=== PATIENT | male | born 1950 | race Caucasian/White ===

== ENCOUNTER 2017-01-12 13:17 | Day surgery (SDC) | payer OTHER, BC ==
[~2017-01-12] VITALS: Ht 182.9 cm; Wt 116.5 kg
[~2017-01-12 13:17] MED LIST: APRESOLINE100 MG PO; CHILD ASPIRIN81 M1 PO; CITRACAL D + H1 EACH PO; CRESTOR20 MG PO; LABETALOL HCL200 MG PO; NABI650T PO; NORVASC2.5 MG PO; ZYLOPRIM100 MG PO
[2017-01-12] MEDS ORDERED: ISONIAZID,INH300 MG PO (14:06)
== END 2017-01-12 16:36 | disposition home or self-care (01) ==
LOC: SDC 13:17
PROC: BV49ZZZ Ultrasonography of Prostate and Seminal Vesicles (ICD-10-PCS; principal; 2017-01-12)
DX: C61 Malignant neoplasm of prostate (principal); Z20.1 Contact with and (suspected) exposure to tuberculosis; I12.0 Hypertensive chronic kidney disease with stage 5 chronic kidney disease or end stage renal disease; E11.22 Type 2 diabetes mellitus with diabetic chronic kidney disease; N18.5 Chronic kidney disease, stage 5; E78.5 Hyperlipidemia, unspecified; G47.30 Sleep apnea, unspecified; M10.9 Gout, unspecified; E83.39 Other disorders of phosphorus metabolism; Z79.82 Long term (current) use of aspirin
CPT/HCPCS: 76873

== ENCOUNTER 2017-02-10 06:18 | Day surgery (SDC) | payer OTHER, BC ==
[2017-01-12 13:53] VITALS: BP 150/71
[~2017-02-10] VITALS: Ht 182.9 cm; Wt 116.4 kg
[~2017-02-10 06:18] MED LIST changes: +ISONIAZID,INH300 MG PO
[2017-02-10] MEDS ORDERED: FEROSUL325 MG PO (06:55)
[2017-02-10 07:08] VITALS: BP 147/66
[2017-02-10 11:45] VITALS: BP 160/80
[2017-02-10 13:04] VITALS: BP 164/81
[2017-02-10 15:19] VITALS: BP 152/73
[2017-02-10 20:10] VITALS: BP 138/68
== END 2017-02-10 20:20 | disposition home or self-care (01) ==
LOC: SDC 06:18
PROC: 0VH031Z Insertion of Radioactive Element into Prostate, Percutaneous Approach (ICD-10-PCS; principal; 2017-02-10)
PROC: BW4GZZZ Ultrasonography of Pelvic Region (ICD-10-PCS; 2017-02-10)
PROC: 0TJB8ZZ Inspection of Bladder, Via Natural or Artificial Opening Endoscopic (ICD-10-PCS; 2017-02-10)
DX: C61 Malignant neoplasm of prostate (principal); I12.0 Hypertensive chronic kidney disease with stage 5 chronic kidney disease or end stage renal disease; E11.22 Type 2 diabetes mellitus with diabetic chronic kidney disease; N18.6 End stage renal disease; Z79.82 Long term (current) use of aspirin
CPT/HCPCS: 76965; 77332; 77778; 85027; C2638; J1100; J2250; J2405; J3010

== ENCOUNTER 2017-03-02 13:40 | Inpatient (IN) | payer OTHER, BC ==
[~2017-03-02] VITALS: Ht 182.9 cm; Wt 112.5 kg
[~2017-03-02 13:40] MED LIST changes: +CALCIUM + D3 E1 EACH PO; -CHILD ASPIRIN81 M1 PO; -CITRACAL D + H1 EACH PO; +FEROSUL325 MG PO; +LO-DOSE ASPIRIN81 M2 PO
[2017-03-02 14:48] LABS: HEMATOCRIT 28.6 % (38.0-50.0); MCH 30.4 PG (29.0-34.0); MCHC 33.2 G/DL (30.0-36.0); MCV 91.4 FL (86-99); PLATELET COUNT 109 K/uL (156-360); RBC DIS.WIDTH-CV 16.9 % (11.8-14.6); RBC DIS.WIDTH-SD 56.1 % (39-53); RED BLOOD COUNT 3.13 M/uL (4.00-5.50); WHITE BLOOD COUNT 8.6 K/uL (4.1-10.2)
[2017-03-02 15:01] LABS: CHLORIDE 112 mEq/L (99-109); POTASSIUM 3.4 mEq/L (3.7-5.4); SODIUM 138 mEq/L (136-147)
[2017-03-02 15:03] LABS: GLUCOSE 97 mg/dL (70-99)
[2017-03-02 15:04] LABS: ANION GAP 14 MEQ/L (2-14)
[2017-03-02 15:05] LABS: TOTAL BILIRUBIN 0.4 mg/dL (0.0-1.0)
[2017-03-02 15:06] LABS: ALKALINE PHOSPHATASE 46 IU/L (3-129)
[2017-03-02 15:07] LABS: GFR ESTIMATE (CALCULATED) 8 mL/min/
[2017-03-02 15:35] LABS: UREA NITROGEN (BUN) 140 mg/dL (9-23)
[2017-03-02] MEDS ORDERED: EPOGEN,PRO20000 UNIT SC (15:41)
[2017-03-02 21:19] VITALS: BP 123/82
[2017-03-03 00:09] VITALS: BP 119/65
[2017-03-03 04:33] VITALS: BP 114/72
[2017-03-03 06:38] LABS: ANION GAP 13 MEQ/L (2-14); CHLORIDE 107 MEQ/L (99-109); GLUCOSE 90 mg/dL (70-99); POTASSIUM 3.5 MEQ/L (3.7-5.4); SAMPLE HEMOLYSIS CHECK 0; SAMPLE ICTERIC CHECK 0; SAMPLE LIPEMIA CHECK 0; SODIUM 140 MEQ/L (136-147)
[2017-03-03 06:51] LABS: GFR ESTIMATE (CALCULATED) 11 mL/min/; UREA NITROGEN (BUN) 106 mg/dL (9-23)
[2017-03-03 08:39] VITALS: BP 130/70
[2017-03-03 08:58] LABS: IRON 43 MCG/DL (35-150)
[2017-03-03 12:15] LABS: HBSG INDEX 0.88
[2017-03-03 12:16] LABS: AHBS INDEX 2.54; HEPATITIS B SURFACE ANTIBODY Nonreactive
[2017-03-03 12:25] VITALS: BP 107/56
[2017-03-03 14:26] LABS: EOSINOPHIL (%) 5.8 % (0-5); EOSINOPHIL COUNT 0.3 K/uL (0-0.3); HEMATOCRIT 26.3 % (38.0-50.0); IMMATURE GRANULOCYTE (%) 0.4 % (0.0-0.7); INSTRUMENT ABS NEUTROPHIL CT 3.5 K/uL; LYMPHOCYTE COUNT 0.5 K/uL (1.0-2.8); MCHC 33.8 G/DL (30.0-36.0); MCV 91.6 FL (86-99); MEAN PLAT.VOLUME 13.2 uM^3 (9.0-12.4); MONOCYTE (%) 2.9 % (3-12); MONOCYTE COUNT 0.1 K/uL (0-0.8); NEUTROPHIL (%) 78.8 % (45-76); NEUTROPHIL COUNT 3.5 K/uL (1.8-6.4); PLATELET COUNT 86 K/uL (156-360); RBC DIS.WIDTH-CV 16.9 % (11.8-14.6); RBC DIS.WIDTH-SD 56.6 % (39-53); RED BLOOD COUNT 2.87 M/uL (4.00-5.50); WHITE BLOOD COUNT 4.5 K/uL (4.1-10.2)
[2017-03-03 17:52] LABS: POINT-OF-CARE METER ID UU14174225
[2017-03-03 20:01] VITALS: BP 110/51
[2017-03-03 23:30] VITALS: BP 125/62
[2017-03-04 03:14] LABS: ADD MIUA? YES; BILIRUBIN NEGATIVE; BLOOD SMALL; COLOR YELLOW ((YELLOW)); GLUCOSE (STRIP) NEGATIVE; KETONES NEGATIVE; LEUKOCYTES NEGATIVE; NITRITE NEGATIVE; PROTEIN (STRIP) 100; SPECIFIC GRAVITY 1.011 (1.000-1.030); UROBILINOGEN 0.2 MG/DL (0.2-1.0)
[2017-03-04 03:22] LABS: BACTERIA RARE /HPF; EPITHELIAL CELLS NONE SEEN /HPF; MUCUS NONE SEEN /LPF; RED BLOOD CELLS 0-5 /HPF (0-5); UCUL ADDED? NO; WHITE BLOOD CELLS 0-5 /HPF (0-5)
[2017-03-04 04:00] VITALS: BP 115/56
[2017-03-04 06:44] LABS: POINT-OF-CARE METER ID UU13113717
[2017-03-04 07:54] LABS: EOSINOPHIL (%) 3.7 % (0-5); EOSINOPHIL COUNT 0.2 K/uL (0-0.3); HEMATOCRIT 26.4 % (38.0-50.0); IMMATURE GRANULOCYTE (%) 0.3 % (0.0-0.7); INSTRUMENT ABS NEUTROPHIL CT 4.8 K/uL; LYMPHOCYTE COUNT 1.1 K/uL (1.0-2.8); MCH 29.5 PG (29.0-34.0); MCHC 31.8 G/DL (30.0-36.0); MCV 92.6 FL (86-99); MEAN PLAT.VOLUME 13.4 uM^3 (9.0-12.4); MONOCYTE COUNT 0.4 K/uL (0-0.8); NEUTROPHIL (%) 73.8 % (45-76); NEUTROPHIL COUNT 4.8 K/uL (1.8-6.4); PLATELET COUNT 83 K/uL (156-360); RBC DIS.WIDTH-CV 16.6 % (11.8-14.6); RBC DIS.WIDTH-SD 55.8 % (39-53); RED BLOOD COUNT 2.85 M/uL (4.00-5.50); WHITE BLOOD COUNT 6.5 K/uL (4.1-10.2)
[2017-03-04 07:55] VITALS: BP 126/76
[2017-03-04 08:54] LABS: INTACT PARATHYROID HORMONE 714 pg/mL (10-69)
[2017-03-04 10:49] LABS: ANION GAP 11 MEQ/L (2-14); CHLORIDE 108 MEQ/L (99-109); GFR ESTIMATE (CALCULATED) 14 mL/min/; GLUCOSE 86 mg/dL (70-99); POTASSIUM 3.5 MEQ/L (3.7-5.4); SAMPLE HEMOLYSIS CHECK 0; SAMPLE ICTERIC CHECK 0; SAMPLE LIPEMIA CHECK 0; SODIUM 141 MEQ/L (136-147); UREA NITROGEN (BUN) 64 mg/dL (9-23)
[2017-03-04] MEDS ORDERED: ROCALTROL0.25 MCG PO (11:52)
[2017-03-04] MEDS ORDERED: ELIPHOS667 MG PO (11:52)
[2017-03-04 12:05] VITALS: BP 127/66
[2017-03-04 16:44] VITALS: BP 128/63
[2017-03-04 19:41] VITALS: BP 110/59
[2017-03-04 23:55] VITALS: BP 110/53
[2017-03-05 04:00] VITALS: BP 108/53
[2017-03-05 06:05] LABS: EOSINOPHIL (%) 3.9 % (0-5); EOSINOPHIL COUNT 0.3 K/uL (0-0.3); IMMATURE GRANULOCYTE (%) 0.4 % (0.0-0.7); INSTRUMENT ABS NEUTROPHIL CT 5.2 K/uL; LYMPHOCYTE COUNT 1.1 K/uL (1.0-2.8); MCHC 32.7 G/DL (30.0-36.0); MCV 94.9 FL (86-99); MEAN PLAT.VOLUME 13.2 uM^3 (9.0-12.4); MONOCYTE (%) 7.4 % (3-12); MONOCYTE COUNT 0.5 K/uL (0-0.8); NEUTROPHIL (%) 72.5 % (45-76); NEUTROPHIL COUNT 5.2 K/uL (1.8-6.4); PLATELET COUNT 64 K/uL (156-360); RBC DIS.WIDTH-CV 16.6 % (11.8-14.6); RBC DIS.WIDTH-SD 57.7 % (39-53); RED BLOOD COUNT 2.74 M/uL (4.00-5.50); WHITE BLOOD COUNT 7.2 K/uL (4.1-10.2)
[2017-03-05 06:28] LABS: ANION GAP 8 MEQ/L (2-14); CHLORIDE 103 MEQ/L (99-109); GFR ESTIMATE (CALCULATED) 16 mL/min/; GLUCOSE 103 mg/dL (70-99); POTASSIUM 3.6 MEQ/L (3.7-5.4); SAMPLE HEMOLYSIS CHECK 0; SAMPLE ICTERIC CHECK 0; SAMPLE LIPEMIA CHECK 0; SODIUM 138 MEQ/L (136-147); UREA NITROGEN (BUN) 42 mg/dL (9-23)
[2017-03-05 08:32] LABS: POINT-OF-CARE METER ID UU14174225
[2017-03-05 08:43] VITALS: BP 110/63
[2017-03-05 11:15] LABS: POINT-OF-CARE METER ID UU14174225
[2017-03-05 11:23] VITALS: BP 107/61
[2017-03-05] MEDS ORDERED: ELIQUIS5 MG PO (11:37)
== END 2017-03-05 12:25 | disposition home or self-care (01) | DRG 673 ==
LOC: EME 13:40 → 5SOUTH 15:37 → EDOF 15:37 → ENRESERV 15:58 → 5SOUTH 20:43
PROVIDERS: Emergency Medicine; Hospitalist; Internal Medicine Nephrology
PROC: 5A1D60Z (ICD-10-PCS; principal; 2017-03-02)
PROC: 02HV33Z Insertion of Infusion Device into Superior Vena Cava, Percutaneous Approach (ICD-10-PCS; 2017-03-04)
PROC: 0JH63XZ Insertion of Tunneled Vascular Access Device into Chest Subcutaneous Tissue and Fascia, Percutaneous Approach (ICD-10-PCS; 2017-03-04)
DX: I12.0 Hypertensive chronic kidney disease with stage 5 chronic kidney disease or end stage renal disease (principal); N18.6 End stage renal disease; I48.0 Paroxysmal atrial fibrillation; G47.33 Obstructive sleep apnea (adult) (pediatric); Z99.2 Dependence on renal dialysis; D63.1 Anemia in chronic kidney disease; M10.9 Gout, unspecified; Z85.46 Personal history of malignant neoplasm of prostate; I27.2 Other secondary pulmonary hypertension; D50.9 Iron deficiency anemia, unspecified; N25.81 Secondary hyperparathyroidism of renal origin; E11.22 Type 2 diabetes mellitus with diabetic chronic kidney disease; E66.3 Overweight; Z68.33 Body mass index [BMI] 33.0-33.9, adult; E29.1 Testicular hypofunction
CPT/HCPCS: 71010; 80053; 80069; 81003; 82306; 82948; 83540; 83970; 84466; 85025; 85027; 86706; 87340; 93005; 93306; 99281; 99285; C1751; C1752; C1788; C2628; J0690; J0881; J1644; J1815; J7040

== ENCOUNTER 2017-03-16 09:25 | Day surgery (SDC) | payer OTHER, BC ==
[~2017-03-16] VITALS: Ht 182.9 cm; Wt 113.4 kg
[~2017-03-16 09:25] MED LIST changes: +ELIPHOS667 MG PO; +ELIQUIS5 MG PO; +EPOGEN,PRO20000 UNIT SC; +ROCALTROL0.25 MCG PO
[2017-03-16 10:08] LABS: POINT-OF-CARE METER ID UU14174212
[2017-03-16 10:26] VITALS: BP 122/63
[2017-03-16] MEDS ORDERED: NORCO 5/3251 TABLET PO (16:33)
[2017-03-16 17:15] VITALS: BP 120/56
[2017-03-16 17:55] VITALS: BP 122/58
== END 2017-03-16 18:10 | disposition home or self-care (01) ==
LOC: SDC
PROVIDERS: Surgery
DX: I12.0 Hypertensive chronic kidney disease with stage 5 chronic kidney disease or end stage renal disease (principal); E11.22 Type 2 diabetes mellitus with diabetic chronic kidney disease; N18.5 Chronic kidney disease, stage 5; D63.1 Anemia in chronic kidney disease; G47.30 Sleep apnea, unspecified; I48.0 Paroxysmal atrial fibrillation; E78.5 Hyperlipidemia, unspecified; E21.3 Hyperparathyroidism, unspecified; C61 Malignant neoplasm of prostate; E87.2 Acidosis; Z79.82 Long term (current) use of aspirin; Z84.1 Family history of disorders of kidney and ureter; Z83.3 Family history of diabetes mellitus; Z82.49 Family history of ischemic heart disease and other diseases of the circulatory system; Z80.6 Family history of leukemia
CPT/HCPCS: 82948; J0131; J0690; J1644; J2250; J2405; J3010

== ENCOUNTER 2017-04-29 14:13 | Day surgery (SDC) | payer OTHER, BC ==
[~2017-04-29] VITALS: Ht 182.9 cm; Wt 113.4 kg
[~2017-04-29 14:13] MED LIST changes: +LABETALOL HCL100 MG PO; -LABETALOL HCL200 MG PO; +NORCO 5/3251 TABLET PO; +PHOSPHATE BINDER PO; +RENAL VITAMIN0.8 MG PO
[2017-04-29] MEDS ORDERED: FERRIC CITRATE210 MG PO ×2 (14:33→14:36)
[2017-04-29 14:53] LABS: BASOPHIL COUNT 0.1 K/uL (0-0.1); EOSINOPHIL (%) 5.1 % (0-5); EOSINOPHIL COUNT 0.5 K/uL (0-0.3); IMMATURE GRANULOCYTE (%) 0.2 % (0.0-0.7); INSTRUMENT ABS NEUTROPHIL CT 5.5 K/uL; LYMPHOCYTE COUNT 2.2 K/uL (1.0-2.8); MCHC 31.3 G/DL (30.0-36.0); MCV 95.8 FL (86-99); MEAN PLAT.VOLUME 10.4 uM^3 (9.0-12.4); MONOCYTE (%) 7.3 % (3-12); MONOCYTE COUNT 0.7 K/uL (0-0.8); NEUTROPHIL (%) 61.7 % (45-76); NEUTROPHIL COUNT 5.5 K/uL (1.8-6.4); PLATELET COUNT 201 K/uL (156-360); RBC DIS.WIDTH-CV 14.7 % (11.8-14.6); RBC DIS.WIDTH-SD 51.3 % (39-53); RED BLOOD COUNT 3.13 M/uL (4.00-5.50); WHITE BLOOD COUNT 8.9 K/uL (4.1-10.2)
[2017-04-29 15:13] LABS: ANION GAP 14 MEQ/L (2-14); CHLORIDE 100 MEQ/L (99-109); GFR ESTIMATE (CALCULATED) 9 mL/min/; GLUCOSE 85 mg/dL (70-99); POTASSIUM 3.7 MEQ/L (3.7-5.4); SAMPLE HEMOLYSIS CHECK 0; SAMPLE ICTERIC CHECK 0; SAMPLE LIPEMIA CHECK 0; SODIUM 140 MEQ/L (136-147); UREA NITROGEN (BUN) 68 mg/dL (9-23)
[2017-04-29 17:05] LABS: POINT-OF-CARE METER ID UU13113675
[2017-04-29 17:40] VITALS: BP 183/77
[2017-04-29 18:10] VITALS: BP 170/75
== END 2017-04-29 18:25 | disposition home or self-care (01) ==
LOC: SDC 14:13
PROVIDERS: Surgery
DX: T82.858A Stenosis of other vascular prosthetic devices, implants and grafts, initial encounter (principal); I12.0 Hypertensive chronic kidney disease with stage 5 chronic kidney disease or end stage renal disease; E11.22 Type 2 diabetes mellitus with diabetic chronic kidney disease; N18.6 End stage renal disease; Z99.2 Dependence on renal dialysis; E78.5 Hyperlipidemia, unspecified; E21.3 Hyperparathyroidism, unspecified; M10.9 Gout, unspecified; I48.0 Paroxysmal atrial fibrillation; G47.30 Sleep apnea, unspecified; Z85.46 Personal history of malignant neoplasm of prostate; D64.9 Anemia, unspecified; Z84.1 Family history of disorders of kidney and ureter; Z80.6 Family history of leukemia; Z83.3 Family history of diabetes mellitus; Z82.49 Family history of ischemic heart disease and other diseases of the circulatory system
CPT/HCPCS: 80048; 82948; 85025; C1725; C1769; C1894; J0690; J1644; J3010

== ENCOUNTER → 2017-06-03 | Outpatient (CLI) | payer OTHER, BC ==
[~2017-06-03] MED LIST changes: +FERRIC CITRATE210 MG PO
== END | disposition home or self-care (01) ==
LOC: AMB 08:44
PROC: 02PYX3Z Removal of Infusion Device from Great Vessel, External Approach (ICD-10-PCS; principal; 2017-06-03)
DX: Z45.2 Encounter for adjustment and management of vascular access device (principal); N18.6 End stage renal disease

== ENCOUNTER 2017-12-11 16:13 | Emergency (ER) | payer OTHER, BC ==
[~2017-12-11] VITALS: Ht 182.9 cm; Wt 120.0 kg
[~2017-12-11 16:13] MED LIST changes: -LABETALOL HCL100 MG PO; +LABETALOL HCL200 MG PO; +NEPHRO-VITE,1 TABLET PO; -PHOSPHATE BINDER PO; -RENAL VITAMIN0.8 MG PO
[2017-12-11 17:15] LABS: HEMOGLOBIN 10.4 G/DL (12.5-16.6); MCH 33.3 PG (29.0-34.0); MCHC 34.7 G/DL (30.0-36.0); MCV 96.2 FL (86-99); PLATELET COUNT 243 K/uL (156-360); RBC DIS.WIDTH-CV 14.5 % (11.8-14.6); RBC DIS.WIDTH-SD 50.1 % (39-53); RED BLOOD COUNT 3.12 M/uL (4.00-5.50); WHITE BLOOD COUNT 12.8 K/uL (4.1-10.2)
[2017-12-11 17:23] LABS: ALBUMIN 4.3 g/dL (3.2-4.8); CHLORIDE 92 mEq/L (99-109); POTASSIUM 3.6 mEq/L (3.7-5.4); SODIUM 139 mEq/L (136-147)
[2017-12-11 17:25] LABS: GLUCOSE 82 mg/dL (70-99); TOTAL PROTEIN 7.5 g/dL (6.4-8.3)
[2017-12-11 17:27] LABS: TOTAL BILIRUBIN 0.5 mg/dL (0.0-1.0)
[2017-12-11 17:31] LABS: ALKALINE PHOSPHATASE 81 IU/L (3-129); AST (GOT) 22 IU/L (2-34); CREATININE 8.3 mg/dL (0.6-1.3); GFR ESTIMATE (CALCULATED) 7 mL/min/ (58.99-99999); UREA NITROGEN (BUN) 50 mg/dL (9-23)
[2017-12-11 17:32] LABS: ALT (GPT) 12 IU/L (3-49); LIPASE 23 U/L (1.0-51.0)
[2017-12-11 17:43] LABS: ACETAMINOPHEN (TYLENOL) < 10 mcg/mL (10-30)
[2017-12-11 19:52] LABS: APPEARANCE CLEAR ((CLEAR)); BILIRUBIN NEGATIVE; BLOOD NEGATIVE; COLOR YELLOW ((YELLOW)); GLUCOSE (STRIP) NEGATIVE; KETONES NEGATIVE; LEUKOCYTES NEGATIVE; NITRITE NEGATIVE; PROTEIN (STRIP) 100; SPECIFIC GRAVITY 1.015 (1.000-1.030); UROBILINOGEN 0.2 MG/DL (0.2-1.0)
[2017-12-11 19:58] LABS: BACTERIA NONE SEEN /HPF; EPITHELIAL CELLS RARE /HPF; MUCUS TRACE /LPF; RED BLOOD CELLS 0-5 /HPF (0-5); UCUL ADDED? YES
[2017-12-11] MEDS ORDERED: BENTYL10 MG PO (19:59)
[2017-12-11 20:29] VITALS: BP 146/92
[2017-12-12 10:53] LABS: HEPATITIS C ANTIBODY Nonreactive
[2017-12-12 10:54] LABS: ANTI-HEPATITIS A VIRUS (IGM) Nonreactive
[2017-12-12 10:56] LABS: ANTI-HEPATITIS B CORE (IGM) Nonreactive; HEPATITIS B SURFACE ANTIGEN Nonreactive
== END 2017-12-11 20:15 | disposition home or self-care (01) ==
LOC: EME 16:13
PROVIDERS: Physician Assistant
DX: R19.7 Diarrhea, unspecified (principal); R10.31 Right lower quadrant pain; I12.0 Hypertensive chronic kidney disease with stage 5 chronic kidney disease or end stage renal disease; E11.22 Type 2 diabetes mellitus with diabetic chronic kidney disease; N18.6 End stage renal disease; Z99.2 Dependence on renal dialysis; N39.0 Urinary tract infection, site not specified; K57.30 Diverticulosis of large intestine without perforation or abscess without bleeding; J98.11 Atelectasis; M43.06 Spondylolysis, lumbar region; Z85.46 Personal history of malignant neoplasm of prostate
CPT/HCPCS: 74177; 80053; 80074; 81003; 83690; 85027; 87086; 99281; 99285; G0480; J7040

== ENCOUNTER 2017-12-14 17:44 | Observation (INO) | payer OTHER, BC ==
[~2017-12-14] VITALS: Ht 182.9 cm; Wt 117.0 kg
[~2017-12-14 17:44] MED LIST changes: +BENTYL10 MG PO
[2017-12-14 18:25] LABS: HEMATOCRIT 29.6 % (38.0-50.0); HEMOGLOBIN 10.3 G/DL (12.5-16.6); MCH 33.4 PG (29.0-34.0); MCHC 34.8 G/DL (30.0-36.0); MCV 96.1 FL (86-99); PLATELET COUNT 226 K/uL (156-360); RBC DIS.WIDTH-CV 14.6 % (11.8-14.6); RBC DIS.WIDTH-SD 50.2 % (39-53); RED BLOOD COUNT 3.08 M/uL (4.00-5.50); WHITE BLOOD COUNT 11.3 K/uL (4.1-10.2)
[2017-12-14 18:35] LABS: ALBUMIN 3.9 g/dL (3.2-4.8); CHLORIDE 92 mEq/L (99-109); POTASSIUM 3.4 mEq/L (3.7-5.4)
[2017-12-14 18:36] LABS: SODIUM 139 mEq/L (136-147)
[2017-12-14 18:38] LABS: GLUCOSE 160 mg/dL (70-99); TOTAL PROTEIN 6.8 g/dL (6.4-8.3)
[2017-12-14 18:40] LABS: TOTAL BILIRUBIN 0.5 mg/dL (0.0-1.0)
[2017-12-14 18:41] LABS: ALKALINE PHOSPHATASE 75 IU/L (3-129)
[2017-12-14 18:42] LABS: CREATININE 4.3 mg/dL (0.6-1.3); GFR ESTIMATE (CALCULATED) 15 mL/min/ (58.99-99999)
[2017-12-14 18:43] LABS: AST (GOT) 18 IU/L (2-34)
[2017-12-14 18:44] LABS: ALT (GPT) 9 IU/L (3-49)
[2017-12-14 18:45] LABS: LIPASE 23 U/L (1.0-51.0)
[2017-12-14 18:47] LABS: UREA NITROGEN (BUN) 19 mg/dL (9-23)
[2017-12-14] MEDS ORDERED: BENTYL10 MG PO (23:19)
[2017-12-14] MEDS ORDERED: BENTYL20 MG PO (23:19)
[2017-12-14] MEDS ORDERED: FERRIC CITRATE210 MG PO (23:22)
[2017-12-14] MEDS ORDERED: PROBIOTIC1 EAC1 PO (23:23)
[2017-12-15 00:08] LABS: COMMENTS - BLOOD GASES C+; DEVICE NC; O2 FLOW 2 L/MIN; PCO2 45 mm Hg (35-45); PO2 105 mm Hg (80-100); SITE RR; pH 7.55 (7.35-7.45)
[2017-12-15 00:09] LABS: BASE EXCESS 15.4 mEq/L (-3 to +3); BICARBONATE 39.4 mEq/L (22-26); METHEMOGLOBIN 0.5 % (0-1.5); TOTAL RESP RATE 20 resp/min
[2017-12-15 01:08] VITALS: BP 168/72
[2017-12-15 01:27] LABS: MAGNESIUM 2.2 mg/dL (1.3-2.7)
[2017-12-15 01:31] LABS: PHOSPHORUS 1.8 mg/dL (2.5-4.9)
[2017-12-15 03:14] LABS: APPEARANCE CLEAR ((CLEAR)); BILIRUBIN NEGATIVE; BLOOD NEGATIVE; COLOR YELLOW ((YELLOW)); GLUCOSE (STRIP) NEGATIVE; KETONES NEGATIVE; LEUKOCYTES NEGATIVE; NITRITE NEGATIVE; PROTEIN (STRIP) 100; SPECIFIC GRAVITY 1.012 (1.000-1.030); UROBILINOGEN 0.2 MG/DL (0.2-1.0)
[2017-12-15 03:33] LABS: BACTERIA RARE /HPF; EPITHELIAL CELLS RARE /HPF; MUCUS NONE SEEN /LPF; RED BLOOD CELLS 0-5 /HPF (0-5); UCUL ADDED? YES
[2017-12-15 04:06] VITALS: BP 144/66
[2017-12-15 07:47] VITALS: BP 143/67
[2017-12-15 11:35] LABS: STOOL OCCULT BLD 1ST SPECIMEN NEGATIVE
[2017-12-15 11:38] VITALS: BP 136/60
[2017-12-15 12:01] LABS: C DIFF TOXIN NEGATIVE (NEGATIVE)
[2017-12-15 16:03] VITALS: BP 177/82
== END 2017-12-15 16:59 | disposition home or self-care (01) ==
LOC: RME 17:44 → EME 17:44 → 4SOUTH 23:39 → EDOF 23:39 → ENRESERV 23:40 → 4SOUTH 12-15 00:54
PROVIDERS: Hospitalist; Internal Medicine Gastroenterology; Physician Assistant Medical
DX: R19.7 Diarrhea, unspecified (principal); R10.9 Unspecified abdominal pain; I12.0 Hypertensive chronic kidney disease with stage 5 chronic kidney disease or end stage renal disease; E11.22 Type 2 diabetes mellitus with diabetic chronic kidney disease; N18.6 End stage renal disease; Z99.2 Dependence on renal dialysis; D63.1 Anemia in chronic kidney disease; I25.10 Atherosclerotic heart disease of native coronary artery without angina pectoris; I48.0 Paroxysmal atrial fibrillation; Z85.46 Personal history of malignant neoplasm of prostate; E03.9 Hypothyroidism, unspecified; N25.81 Secondary hyperparathyroidism of renal origin; G47.33 Obstructive sleep apnea (adult) (pediatric); E78.5 Hyperlipidemia, unspecified; M10.9 Gout, unspecified; Z92.3 Personal history of irradiation; Z90.49 Acquired absence of other specified parts of digestive tract; E23.6 Other disorders of pituitary gland; K62.89 Other specified diseases of anus and rectum; M54.5 Low back pain; E11.65 Type 2 diabetes mellitus with hyperglycemia; E87.4 Mixed disorder of acid-base balance; H92.02 Otalgia, left ear; R50.9 Fever, unspecified; Z80.6 Family history of leukemia; Z68.35 Body mass index [BMI] 35.0-35.9, adult
CPT/HCPCS: 36600; 74176; 80053; 81003; 82272; 82803; 83630; 83690; 83735; 84100; 85027; 87086; 87177; 87493; 87506; 93005; 99281; 99285; G0378; J3010; J7030

== ENCOUNTER 2017-12-21 11:27 | Emergency (ER) | payer OTHER, BC ==
[~2017-12-21] VITALS: Ht 182.9 cm; Wt 117.5 kg
[~2017-12-21 11:27] MED LIST changes: +BENTYL20 MG PO; +PROBIOTIC1 EAC1 PO
[2017-12-21 12:17] LABS: HEMATOCRIT 29.1 % (38.0-50.0); MCH 33.3 PG (29.0-34.0); MCHC 34.4 G/DL (30.0-36.0); PLATELET COUNT 222 K/uL (156-360); RBC DIS.WIDTH-CV 14.6 % (11.8-14.6); RBC DIS.WIDTH-SD 51.6 % (39-53); WHITE BLOOD COUNT 12.7 K/uL (4.1-10.2)
[2017-12-21 12:22] LABS: INTER. NORMALIZED RATIO 1.3
[2017-12-21 12:32] LABS: CHLORIDE 96 mEq/L (99-109); POTASSIUM 3.6 mEq/L (3.7-5.4); SODIUM 140 mEq/L (136-147)
[2017-12-21 12:33] LABS: GLUCOSE 143 mg/dL (70-99)
[2017-12-21 12:37] LABS: GFR ESTIMATE (CALCULATED) 20 mL/min/ (58.99-99999)
[2017-12-21 12:38] LABS: UREA NITROGEN (BUN) 12 mg/dL (9-23)
[2017-12-21 12:39] LABS: TROP-I INTERPRETATION NEGATIVE; TROPONIN-I 0.01 ng/mL (0.0-0.30)
[2017-12-21 12:41] LABS: CREATININE 3.3 mg/dL (0.6-1.3)
[2017-12-21 15:25] VITALS: BP 118/65
== END 2017-12-21 15:33 | disposition home or self-care (01) ==
LOC: EME 11:27
PROVIDERS: Emergency Medicine
DX: R00.2 Palpitations (principal); I12.0 Hypertensive chronic kidney disease with stage 5 chronic kidney disease or end stage renal disease; N18.6 End stage renal disease; Z99.2 Dependence on renal dialysis; I48.91 Unspecified atrial fibrillation; R06.02 Shortness of breath; R03.1 Nonspecific low blood-pressure reading; I45.10 Unspecified right bundle-branch block; E78.5 Hyperlipidemia, unspecified
CPT/HCPCS: 71045; 80048; 81003; 84484; 85027; 85610; 93005; 99281; 99285; J7030

== ENCOUNTER 2017-12-26 16:13 | Inpatient (IN) | payer BC, OTHER ==
[~2017-12-26] VITALS: Ht 182.9 cm; Wt 114.3 kg
[2017-12-26 17:15] LABS: HEMATOCRIT 29.2 % (38.0-50.0); MCH 32.9 PG (29.0-34.0); MCHC 34.2 G/DL (30.0-36.0); MCV 96.1 FL (86-99); PLATELET COUNT 275 K/uL (156-360); RBC DIS.WIDTH-CV 14.6 % (11.8-14.6); RBC DIS.WIDTH-SD 50.5 % (39-53); RED BLOOD COUNT 3.04 M/uL (4.00-5.50); WHITE BLOOD COUNT 13.6 K/uL (4.1-10.2)
[2017-12-26 18:06] LABS: ALBUMIN 3.5 G/DL (3.2-4.8); CHLORIDE 94 MEQ/L (99-109); POTASSIUM 3.5 MEQ/L (3.7-5.4); SODIUM 140 MEQ/L (136-147); TOTAL BILIRUBIN 0.6 MG/DL (0.0-1.0)
[2017-12-26 18:12] LABS: ALKALINE PHOSPHATASE 63 IU/L (3-129); ALT (GPT) 10 IU/L (3-49); AST (GOT) 22 IU/L (2-34); CREATININE 3.5 MG/DL (0.6-1.3); GFR ESTIMATE (CALCULATED) 19 mL/min/ (58.99-99999); GLUCOSE 104 mg/dL (70-99); LIPASE 7 U/L (1.0-51.0); TOTAL PROTEIN 6.6 G/DL (6.4-8.3); UREA NITROGEN (BUN) 18 mg/dL (9-23)
[2017-12-26] MEDS ORDERED: TYLENOL EXTRA500 MG PO (19:53)
[2017-12-26] MEDS ORDERED: METRONIDAZOLE500 MG PO (19:53)
[2017-12-26] MEDS ORDERED: IMODIUM A-D2 M2 PO (19:54)
[2017-12-26 21:17] LABS: CARBOXY HGB 1.4 % (0-5); COMMENTS - BLOOD GASES C+A+; FI02 21 %; METHEMOGLOBIN 0.6 % (0-1.5); O2 FLOW 0 L/MIN; PCO2 42 mm Hg (35-45); PO2 58 mm Hg (80-100); SITE RR
[2017-12-26 21:18] LABS: BASE EXCESS 16 mEq/L (-3 to +3); BICARBONATE 39.4 mEq/L (22-26); pH 7.58 (7.35-7.45)
[2017-12-27] VITALS (7 sets, daily range): BP systolic 115–145; BP diastolic 57–70
[2017-12-27 07:14] LABS: APPEARANCE CLEAR ((CLEAR)); BILIRUBIN NEGATIVE; BLOOD NEGATIVE; COLOR YELLOW ((YELLOW)); GLUCOSE (STRIP) NEGATIVE; KETONES NEGATIVE; LEUKOCYTES TRACE; NITRITE NEGATIVE; PROTEIN (STRIP) 100; SPECIFIC GRAVITY 1.011 (1.000-1.030); UROBILINOGEN 0.2 MG/DL (0.2-1.0)
[2017-12-27 07:21] LABS: BACTERIA NONE SEEN /HPF; EPITHELIAL CELLS RARE /HPF; MUCUS NONE SEEN /LPF; RED BLOOD CELLS 0-5 /HPF (0-5); UCUL ADDED? YES
[2017-12-28] VITALS (16 sets, daily range): BP systolic 98–173; BP diastolic 51–94
[2017-12-28 06:00] LABS: HEMATOCRIT 25.4 % (38.0-50.0); HEMOGLOBIN 8.4 G/DL (12.5-16.6); MCH 31.8 PG (29.0-34.0); MCHC 33.1 G/DL (30.0-36.0); MCV 96.2 FL (86-99); PLATELET COUNT 242 K/uL (156-360); RBC DIS.WIDTH-CV 14.8 % (11.8-14.6); RED BLOOD COUNT 2.64 M/uL (4.00-5.50); WHITE BLOOD COUNT 12.8 K/uL (4.1-10.2)
[2017-12-28 06:22] LABS: ALBUMIN 2.9 G/DL (3.2-4.8); C-REACTIVE PROTEIN 136.6 MG/L (0-10); CHLORIDE 97 MEQ/L (99-109); GFR ESTIMATE (CALCULATED) 11 mL/min/ (58.99-99999); GLUCOSE 91 mg/dL (70-99); POTASSIUM 3.1 MEQ/L (3.7-5.4); SODIUM 139 MEQ/L (136-147)
[2017-12-28 06:23] LABS: CREATININE 5.7 MG/DL (0.6-1.3); UREA NITROGEN (BUN) 38 mg/dL (9-23)
[2017-12-28 17:44] LABS: C DIFF TOXIN ND (NEGATIVE)
[2017-12-29 00:10] VITALS: BP 138/63
[2017-12-29 04:03] VITALS: BP 131/63
[2017-12-29 05:56] LABS: HEMOGLOBIN 7.9 G/DL (12.5-16.6); MCHC 32.9 G/DL (30.0-36.0); MCV 97.2 FL (86-99); PLATELET COUNT 221 K/uL (156-360); RBC DIS.WIDTH-CV 14.8 % (11.8-14.6); RBC DIS.WIDTH-SD 52.5 % (39-53); RED BLOOD COUNT 2.47 M/uL (4.00-5.50); WHITE BLOOD COUNT 10.7 K/uL (4.1-10.2)
[2017-12-29 06:13] LABS: CHLORIDE 101 MEQ/L (99-109); CREATININE 4.9 MG/DL (0.6-1.3); GFR ESTIMATE (CALCULATED) 13 mL/min/ (58.99-99999); GLUCOSE 97 mg/dL (70-99); MAGNESIUM 1.8 mg/dl (1.3-2.7); POTASSIUM 3.7 MEQ/L (3.7-5.4); SODIUM 139 MEQ/L (136-147); UREA NITROGEN (BUN) 24 mg/dL (9-23)
[2017-12-29 09:09] VITALS: BP 127/69
[2017-12-29 12:46] VITALS: BP 143/68
[2017-12-29 16:05] VITALS: BP 144/70
[2017-12-29 19:19] LABS: C DIFF TOXIN NEGATIVE (NEGATIVE)
[2017-12-29 20:40] VITALS: BP 141/70
[2017-12-30] VITALS (7 sets, daily range): BP systolic 102–147; BP diastolic 45–91
[2017-12-30 08:59] LABS: HEMATOCRIT 24.5 % (38.0-50.0); HEMOGLOBIN 8.1 G/DL (12.5-16.6); MCH 31.8 PG (29.0-34.0); MCHC 33.1 G/DL (30.0-36.0); MCV 96.1 FL (86-99); PLATELET COUNT 225 K/uL (156-360); RBC DIS.WIDTH-CV 15.1 % (11.8-14.6); RBC DIS.WIDTH-SD 52.7 % (39-53); RED BLOOD COUNT 2.55 M/uL (4.00-5.50); WHITE BLOOD COUNT 10.6 K/uL (4.1-10.2)
[2017-12-30 09:18] LABS: CHLORIDE 100 MEQ/L (99-109); SODIUM 137 MEQ/L (136-147)
[2017-12-30 09:31] LABS: GFR ESTIMATE (CALCULATED) 10 mL/min/ (58.99-99999); GLUCOSE 145 mg/dL (70-99); UREA NITROGEN (BUN) 36 mg/dL (9-23)
[2017-12-30 09:33] LABS: CREATININE 6.1 MG/DL (0.6-1.3)
[2017-12-30 11:52] LABS: IRON 55 MCG/DL (35-150); TRANSFERRIN (TIBC) 94.1 mg/dL (215-380); TRANSFERRIN SATUR. 58 % (20-55)
[2017-12-31 04:41] VITALS: BP 140/66
[2017-12-31 07:11] VITALS: BP 118/64
[2017-12-31] MEDS ORDERED: METRONIDAZOLE500 MG PO (10:44)
[2017-12-31 10:48] VITALS: BP 126/76
== END 2017-12-31 11:44 | disposition home or self-care (01) | DRG 871 ==
LOC: EME 16:13 → EDOF 21:13 → 3EAST 21:13 → 4EAST 21:13 → CANRESERV 21:47 → ENRESERV 21:47 → 3EAST 12-27 01:06 → ENRESERV 12-28 03:30 → 4EAST 12-28 04:02 → CANRESERV 12-29 07:45 → ENRESERV 12-29 07:45 → CANRESERV 12-29 08:06 → ENRESERV 12-29 08:06 → 4EAST 12-31 11:44
PROVIDERS: Family Medicine; Hospitalist; Internal Medicine Gastroenterology; Internal Medicine Nephrology; Physician Assistant Medical
DX: A41.9 Sepsis, unspecified organism (principal); K52.9 Noninfective gastroenteritis and colitis, unspecified; I10 Essential (primary) hypertension; G47.33 Obstructive sleep apnea (adult) (pediatric); E87.6 Hypokalemia; E87.3 Alkalosis; K64.8 Other hemorrhoids; D63.1 Anemia in chronic kidney disease; E66.09 Other obesity due to excess calories; N18.6 End stage renal disease; I12.0 Hypertensive chronic kidney disease with stage 5 chronic kidney disease or end stage renal disease; I48.0 Paroxysmal atrial fibrillation; N25.81 Secondary hyperparathyroidism of renal origin; K63.3 Ulcer of intestine; K29.70 Gastritis, unspecified, without bleeding; K29.80 Duodenitis without bleeding; E83.39 Other disorders of phosphorus metabolism; E83.51 Hypocalcemia; E88.09 Other disorders of plasma-protein metabolism, not elsewhere classified; E11.22 Type 2 diabetes mellitus with diabetic chronic kidney disease; E78.5 Hyperlipidemia, unspecified; Z68.35 Body mass index [BMI] 35.0-35.9, adult; Z99.2 Dependence on renal dialysis; Z79.899 Other long term (current) drug therapy; Z87.442 Personal history of urinary calculi
CPT/HCPCS: 36600; 80048; 80053; 80069; 81003; 82803; 82948; 83540; 83605; 83690; 83735; 84132 91; 84466; 85027; 86140; 87040; 87086; 87493; 88305; 88342 TC; 99281; 99284; J0881; J1270; J1644; J1756; J1815; J3370; J7030; J7050

== ENCOUNTER 2018-01-09 00:18 | Inpatient (IN) | payer BC, OTHER ==
[~2018-01-09] VITALS: Ht 182.9 cm; Wt 114.9 kg
[~2018-01-09 00:18] MED LIST changes: +IMODIUM A-D2 M2 PO; +METRONIDAZOLE500 MG PO; +TYLENOL EXTRA500 MG PO
[2018-01-09 00:47] LABS: BASOPHIL (%) 0.4 % (0-1); BASOPHIL COUNT 0.1 K/uL (0-0.1); EOSINOPHIL COUNT 0.3 K/uL (0-0.3); HEMATOCRIT 29.5 % (38.0-50.0); HEMOGLOBIN 9.7 G/DL (12.5-16.6); IMMATURE GRANULOCYTE (%) 0.6 % (0.0-0.7); LYMPHOCYTE (%) 9.2 % (15-42); LYMPHOCYTE COUNT 1.3 K/uL (1.0-2.8); MCH 32.4 PG (29.0-34.0); MCHC 32.9 G/DL (30.0-36.0); MCV 98.7 FL (86-99); MONOCYTE (%) 7.7 % (3-12); MONOCYTE COUNT 1.1 K/uL (0-0.8); NEUTROPHIL (%) 80.1 % (45-76); NEUTROPHIL COUNT 11.6 K/uL (1.8-6.4); PLATELET COUNT 287 K/uL (156-360); RBC DIS.WIDTH-CV 15.7 % (11.8-14.6); RBC DIS.WIDTH-SD 56.8 % (39-53); RED BLOOD COUNT 2.99 M/uL (4.00-5.50); WHITE BLOOD COUNT 14.5 K/uL (4.1-10.2)
[2018-01-09 00:56] LABS: ALBUMIN 2.9 g/dL (3.2-4.8); CHLORIDE 96 mEq/L (99-109); POTASSIUM 3.9 mEq/L (3.7-5.4); SODIUM 134 mEq/L (136-147)
[2018-01-09 00:58] LABS: GLUCOSE 194 mg/dL (70-99); TOTAL PROTEIN 6.2 g/dL (6.4-8.3)
[2018-01-09 01:00] LABS: TOTAL BILIRUBIN 0.7 mg/dL (0.0-1.0)
[2018-01-09 01:02] LABS: ALKALINE PHOSPHATASE 61 IU/L (3-129); CREATININE 6.8 mg/dL (0.6-1.3); GFR ESTIMATE (CALCULATED) 9 mL/min/ (58.99-99999)
[2018-01-09 01:03] LABS: UREA NITROGEN (BUN) 40 mg/dL (9-23)
[2018-01-09 01:04] LABS: AST (GOT) 22 IU/L (2-34)
[2018-01-09 01:05] LABS: ALT (GPT) 11 IU/L (3-49)
[2018-01-09] MEDS ORDERED: BENTYL10 MG PO (02:18)
[2018-01-09 04:47] VITALS: BP 117/63
[2018-01-09 06:52] LABS: ALBUMIN 2.3 G/DL (3.2-4.8); ALKALINE PHOSPHATASE 49 IU/L (3-129); ALT (GPT) 7 IU/L (3-49); AST (GOT) 15 IU/L (2-34); CHLORIDE 101 MEQ/L (99-109); CREATININE 6.4 MG/DL (0.6-1.3); GFR ESTIMATE (CALCULATED) 9 mL/min/ (58.99-99999); POTASSIUM 3.9 MEQ/L (3.7-5.4); SODIUM 138 MEQ/L (136-147); TOTAL BILIRUBIN 0.5 MG/DL (0.0-1.0); TOTAL PROTEIN 4.6 G/DL (6.4-8.3); UREA NITROGEN (BUN) 37 mg/dL (9-23)
[2018-01-09 06:57] LABS: GLUCOSE 93 mg/dL (70-99)
[2018-01-09 07:55] LABS: APPEARANCE CLEAR ((CLEAR)); BILIRUBIN NEGATIVE; BLOOD NEGATIVE; COLOR YELLOW ((YELLOW)); GLUCOSE (STRIP) NEGATIVE; KETONES NEGATIVE; LEUKOCYTES NEGATIVE; NITRITE NEGATIVE; PROTEIN (STRIP) 100; SPECIFIC GRAVITY 1.011 (1.000-1.030); UROBILINOGEN 0.2 MG/DL (0.2-1.0)
[2018-01-09 07:59] VITALS: BP 149/67
[2018-01-09 08:22] LABS: BACTERIA NONE SEEN /HPF; EPITHELIAL CELLS 1+ /HPF; MUCUS TRACE /LPF; RED BLOOD CELLS 0-5 /HPF (0-5); UCUL ADDED? NO; WHITE BLOOD CELLS 0-5 /HPF (0-5)
[2018-01-09 08:28] LABS: C DIFF TOXIN ND (NEGATIVE)
[2018-01-09 09:18] LABS: HEMATOCRIT 23.7 % (38.0-50.0); HEMOGLOBIN 7.8 G/DL (12.5-16.6); MCH 32.4 PG (29.0-34.0); MCHC 32.9 G/DL (30.0-36.0); MCV 98.3 FL (86-99); RBC DIS.WIDTH-CV 15.8 % (11.8-14.6); RBC DIS.WIDTH-SD 56.6 % (39-53); RED BLOOD COUNT 2.41 M/uL (4.00-5.50); WHITE BLOOD COUNT 8.2 K/uL (4.1-10.2)
[2018-01-09 09:33] LABS: PLAT.SUFFICIENCY ADEQUATE
[2018-01-09 09:34] LABS: PLATELET COUNT 186 K/uL (156-360)
[2018-01-09 12:17] VITALS: BP 145/74
[2018-01-09 19:27] VITALS: BP 136/64
[2018-01-09 23:22] VITALS: BP 145/69
[2018-01-10 04:06] VITALS: BP 149/72
[2018-01-10 06:12] LABS: BASOPHIL (%) 0.1 % (0-1); EOSINOPHIL (%) 0.1 % (0-5); HEMATOCRIT 27.1 % (38.0-50.0); HEMOGLOBIN 8.7 G/DL (12.5-16.6); IMMATURE GRANULOCYTE (%) 0.6 % (0.0-0.7); LYMPHOCYTE (%) 7.2 % (15-42); LYMPHOCYTE COUNT 0.5 K/uL (1.0-2.8); MCH 31.2 PG (29.0-34.0); MCHC 32.1 G/DL (30.0-36.0); MCV 97.1 FL (86-99); MONOCYTE (%) 1.2 % (3-12); MONOCYTE COUNT 0.1 K/uL (0-0.8); NEUTROPHIL (%) 90.8 % (45-76); NEUTROPHIL COUNT 6.2 K/uL (1.8-6.4); PLATELET COUNT 209 K/uL (156-360); RBC DIS.WIDTH-CV 15.1 % (11.8-14.6); RBC DIS.WIDTH-SD 53.6 % (39-53); RED BLOOD COUNT 2.79 M/uL (4.00-5.50); WHITE BLOOD COUNT 6.8 K/uL (4.1-10.2)
[2018-01-10 06:57] LABS: CHLORIDE 102 MEQ/L (99-109); GFR ESTIMATE (CALCULATED) 16 mL/min/ (58.99-99999); POTASSIUM 4.4 MEQ/L (3.7-5.4); SODIUM 138 MEQ/L (136-147); UREA NITROGEN (BUN) 22 mg/dL (9-23); VANCOMYCIN, TROUGH 11.2 MCG/ML (10-20)
[2018-01-10 07:15] LABS: CREATININE 4.1 MG/DL (0.6-1.3); GLUCOSE 174 mg/dL (70-99)
[2018-01-10 08:26] VITALS: BP 166/74
[2018-01-10 09:51] LABS: HEPATITIS B SURFACE ANTIBODY Nonreactive; HEPATITIS B SURFACE ANTIGEN Nonreactive
[2018-01-10 12:02] VITALS: BP 153/72
[2018-01-10 15:48] VITALS: BP 110/70
[2018-01-10 19:34] VITALS: BP 127/62
[2018-01-10 23:59] VITALS: BP 163/78
[2018-01-11 03:32] VITALS: BP 156/81
[2018-01-11 08:24] VITALS: BP 129/69
[2018-01-11 08:49] LABS: HEMATOCRIT 23.5 % (38.0-50.0); HEMOGLOBIN 7.7 G/DL (12.5-16.6); MCH 31.6 PG (29.0-34.0); MCHC 32.8 G/DL (30.0-36.0); MCV 96.3 FL (86-99); PLATELET COUNT 215 K/uL (156-360); RBC DIS.WIDTH-CV 15.1 % (11.8-14.6); RBC DIS.WIDTH-SD 53.1 % (39-53); RED BLOOD COUNT 2.44 M/uL (4.00-5.50); WHITE BLOOD COUNT 9.7 K/uL (4.1-10.2)
[2018-01-11 09:02] LABS: ALBUMIN 2.5 G/DL (3.2-4.8); CHLORIDE 99 MEQ/L (99-109); POTASSIUM 3.6 MEQ/L (3.7-5.4); SODIUM 133 MEQ/L (136-147)
[2018-01-11 09:09] LABS: CREATININE 5.8 MG/DL (0.6-1.3); GFR ESTIMATE (CALCULATED) 10 mL/min/ (58.99-99999); GLUCOSE 188 mg/dL (70-99); UREA NITROGEN (BUN) 44 mg/dL (9-23)
[2018-01-11 12:56] VITALS: BP 128/69
[2018-01-11 14:46] LABS: HEMOGLOBIN 8.7 G/DL (12.5-16.6); MCV 95.9 FL (86-99)
[2018-01-11 16:34] VITALS: BP 141/79
[2018-01-11 17:38] LABS: STOOL OCCULT BLD 1ST SPECIMEN POSITIVE
[2018-01-11 19:26] VITALS: BP 142/67
[2018-01-11 19:45] LABS: HEMATOCRIT 25.8 % (38.0-50.0); HEMOGLOBIN 8.4 G/DL (12.5-16.6); MCV 96.3 FL (86-99)
[2018-01-12] VITALS: BP 153/76
[2018-01-12 00:26] LABS: MCV 95.7 FL (86-99)
[2018-01-12 01:15] LABS: C DIFF TOXIN NEGATIVE (NEGATIVE)
[2018-01-12 03:41] LABS: HEMATOCRIT 24.4 % (38.0-50.0); HEMOGLOBIN 8.3 G/DL (12.5-16.6); MCV 96.1 FL (86-99)
[2018-01-12 03:57] VITALS: BP 173/75
[2018-01-12 03:57] LABS: CHLORIDE 102 mEq/L (99-109); SODIUM 139 mEq/L (136-147)
[2018-01-12 03:59] LABS: GLUCOSE 157 mg/dL (70-99)
[2018-01-12 04:03] LABS: GFR ESTIMATE (CALCULATED) 15 mL/min/ (58.99-99999); UREA NITROGEN (BUN) 31 mg/dL (9-23)
[2018-01-12 04:07] LABS: CREATININE 4.3 mg/dL (0.6-1.3)
[2018-01-12 08:00] VITALS: BP 173/78
[2018-01-12 09:30] LABS: BASOPHIL (%) 0.2 % (0-1); EOSINOPHIL (%) 0 % (0-5); HEMATOCRIT 27.3 % (38.0-50.0); HEMOGLOBIN 9.2 G/DL (12.5-16.6); LYMPHOCYTE (%) 11.6 % (15-42); LYMPHOCYTE COUNT 1.1 K/uL (1.0-2.8); MCH 32.5 PG (29.0-34.0); MCHC 33.7 G/DL (30.0-36.0); MCV 96.5 FL (86-99); MONOCYTE (%) 7.3 % (3-12); MONOCYTE COUNT 0.7 K/uL (0-0.8); NEUTROPHIL (%) 78.9 % (45-76); NEUTROPHIL COUNT 7.5 K/uL (1.8-6.4); NRBC (%) 0.4 /100 WBC (0-0); PLATELET COUNT 264 K/uL (156-360); RBC DIS.WIDTH-SD 52.7 % (39-53); RED BLOOD COUNT 2.83 M/uL (4.00-5.50); WHITE BLOOD COUNT 9.5 K/uL (4.1-10.2)
[2018-01-12 11:43] VITALS: BP 173/82
[2018-01-12 15:57] VITALS: BP 174/77
[2018-01-12 16:18] LABS: HEMATOCRIT 27.3 % (38.0-50.0); HEMOGLOBIN 8.8 G/DL (12.5-16.6); MCV 97.8 FL (86-99)
[2018-01-12 19:43] VITALS: BP 165/77
[2018-01-13 00:25] VITALS: BP 167/65
[2018-01-13 04:00] VITALS: BP 169/77
[2018-01-13 07:00] VITALS: BP 178/85
[2018-01-13 08:59] LABS: ALBUMIN 2.6 G/DL (3.2-4.8); CHLORIDE 100 MEQ/L (99-109); GFR ESTIMATE (CALCULATED) 11 mL/min/ (58.99-99999); GLUCOSE 124 mg/dL (70-99); PHOSPHORUS 4.2 mg/dL (2.5-4.9); POTASSIUM 3.7 MEQ/L (3.7-5.4); SODIUM 137 MEQ/L (136-147); UREA NITROGEN (BUN) 43 mg/dL (9-23)
[2018-01-13 09:02] LABS: CREATININE 5.5 MG/DL (0.6-1.3)
[2018-01-13 09:04] LABS: MCV 96.9 FL (86-99); NRBC (%) 0.6 /100 WBC (0-0); PLATELET COUNT 266 K/uL (156-360); RBC DIS.WIDTH-SD 52.3 % (39-53); RED BLOOD COUNT 2.58 M/uL (4.00-5.50); WHITE BLOOD COUNT 8.1 K/uL (4.1-10.2)
[2018-01-13 16:21] VITALS: BP 142/72
[2018-01-13 19:19] VITALS: BP 146/68
[2018-01-14 00:08] VITALS: BP 172/74
[2018-01-14 06:09] LABS: HEMATOCRIT 26.5 % (38.0-50.0); HEMOGLOBIN 8.8 G/DL (12.5-16.6); MCH 32.1 PG (29.0-34.0); MCHC 33.2 G/DL (30.0-36.0); MCV 96.7 FL (86-99); NRBC (%) 0.5 /100 WBC (0-0); PLATELET COUNT 288 K/uL (156-360); RBC DIS.WIDTH-SD 52.3 % (39-53); RED BLOOD COUNT 2.74 M/uL (4.00-5.50)
[2018-01-14 06:51] LABS: CHLORIDE 98 MEQ/L (99-109); GFR ESTIMATE (CALCULATED) 16 mL/min/ (58.99-99999); GLUCOSE 127 mg/dL (70-99); POTASSIUM 3.8 MEQ/L (3.7-5.4); SODIUM 138 MEQ/L (136-147); UREA NITROGEN (BUN) 36 mg/dL (9-23)
[2018-01-14 06:53] LABS: CREATININE 4.1 MG/DL (0.6-1.3)
[2018-01-14 07:35] VITALS: BP 175/83
[2018-01-14 15:50] VITALS: BP 177/75
[2018-01-14 23:01] VITALS: BP 179/78
[2018-01-15 07:16] VITALS: BP 138/66
[2018-01-15] MEDS ORDERED: LOPERAMIDE2 MG PO (08:42)
[2018-01-15] MEDS ORDERED: PREDNISONE10 MG PO (08:42)
[2018-01-15] MEDS ORDERED: FLORASTOR250 MG PO (08:42)
[2018-01-15 08:48] LABS: HEMATOCRIT 26.2 % (38.0-50.0); HEMOGLOBIN 8.6 G/DL (12.5-16.6); MCH 31.4 PG (29.0-34.0); MCHC 32.8 G/DL (30.0-36.0); MCV 95.6 FL (86-99); NRBC (%) 0.3 /100 WBC (0-0); PLATELET COUNT 279 K/uL (156-360); RBC DIS.WIDTH-SD 51.9 % (39-53); RED BLOOD COUNT 2.74 M/uL (4.00-5.50)
[2018-01-15 09:15] LABS: CHLORIDE 97 MEQ/L (99-109); GFR ESTIMATE (CALCULATED) 11 mL/min/ (58.99-99999); GLUCOSE 116 mg/dL (70-99); POTASSIUM 3.8 MEQ/L (3.7-5.4); SODIUM 136 MEQ/L (136-147); UREA NITROGEN (BUN) 61 mg/dL (9-23)
[2018-01-15 09:16] LABS: CREATININE 5.7 MG/DL (0.6-1.3)
[2018-01-15] MEDS ORDERED: AMLODIPINE BESYL5 MG PO (09:47)
== END 2018-01-15 11:47 | disposition home or self-care (01) | DRG 391 ==
LOC: EME 00:18 → 5SOUTH 03:40 → EDOF 03:40 → ENRESERV 03:41 → 5SOUTH 04:27
PROVIDERS: Emergency Medicine; Internal Medicine; Physician Assistant; Physician Assistant Medical
PROC: 5A1D70Z Performance of Urinary Filtration, Intermittent, Less than 6 Hours Per Day (ICD-10-PCS; principal; 2018-01-09)
DX: K58.0 Irritable bowel syndrome with diarrhea (principal); I48.0 Paroxysmal atrial fibrillation; K92.1 Melena; D68.32 Hemorrhagic disorder due to extrinsic circulating anticoagulants; T45.515A Adverse effect of anticoagulants, initial encounter; N18.6 End stage renal disease; I12.0 Hypertensive chronic kidney disease with stage 5 chronic kidney disease or end stage renal disease; E11.22 Type 2 diabetes mellitus with diabetic chronic kidney disease; D63.1 Anemia in chronic kidney disease; E87.2 Acidosis; I95.89 Other hypotension; E86.1 Hypovolemia; E86.0 Dehydration; E87.6 Hypokalemia; E78.00 Pure hypercholesterolemia, unspecified; E03.9 Hypothyroidism, unspecified; G47.33 Obstructive sleep apnea (adult) (pediatric); K63.3 Ulcer of intestine; N25.81 Secondary hyperparathyroidism of renal origin; M10.9 Gout, unspecified; Z87.442 Personal history of urinary calculi; E78.5 Hyperlipidemia, unspecified; Z99.2 Dependence on renal dialysis; Z85.46 Personal history of malignant neoplasm of prostate; Z92.3 Personal history of irradiation
CPT/HCPCS: 71045; 80048; 80053; 80069; 80202; 81003; 82272; 82948; 83036; 83605; 85014; 85018; 85025; 85025 91; 85027; 86021 90; 86671 90; 86706; 86850; 86900; 86901; 87040; 87177; 87340; 87493; 93005; 97530 GP; 99281; 99285; C9113; J0881; J1270; J1644; J1815; J2543; J2930; J3370; J7030; J7050

== ENCOUNTER 2018-01-27 12:09 | Inpatient (IN) | payer OTHER, BC ==
[~2018-01-27] VITALS: Ht 182.9 cm; Wt 113.9 kg
[~2018-01-27 12:09] MED LIST changes: +AMLODIPINE BESYL5 MG PO; +FLORASTOR250 MG PO; +LOPERAMIDE2 MG PO; +PREDNISONE10 MG PO
[2018-01-27 12:51] LABS: MCH 31.9 PG (29.0-34.0); RBC DIS.WIDTH-CV 15.9 % (11.8-14.6); RBC DIS.WIDTH-SD 57.8 % (39-53); RED BLOOD COUNT 2.51 M/uL (4.00-5.50); WHITE BLOOD COUNT 16.4 K/uL (4.1-10.2)
[2018-01-27 12:53] LABS: ALBUMIN 2.5 g/dL (3.2-4.8); CHLORIDE 93 mEq/L (99-109); POTASSIUM 3.2 mEq/L (3.7-5.4); SODIUM 135 mEq/L (136-147)
[2018-01-27 12:54] LABS: MCV 99.6 FL (86-99)
[2018-01-27 12:55] LABS: GLUCOSE 106 mg/dL (70-99); TOTAL PROTEIN 5.1 g/dL (6.4-8.3)
[2018-01-27 12:57] LABS: TOTAL BILIRUBIN 0.5 mg/dL (0.0-1.0)
[2018-01-27 12:59] LABS: ALKALINE PHOSPHATASE 61 IU/L (3-129); CREATININE 5.9 mg/dL (0.6-1.3); GFR ESTIMATE (CALCULATED) 10 mL/min/ (58.99-99999)
[2018-01-27 13:00] LABS: UREA NITROGEN (BUN) 51 mg/dL (9-23)
[2018-01-27 13:01] LABS: AST (GOT) 17 IU/L (2-34)
[2018-01-27 13:02] LABS: ALT (GPT) 14 IU/L (3-49)
[2018-01-27 13:41] LABS: PLAT.SUFFICIENCY DECREASED
[2018-01-27 13:53] LABS: PLATELET COUNT 140 K/uL (156-360)
[2018-01-27 14:07] LABS: LIPASE 5 U/L (1.0-51.0)
[2018-01-27 15:53] LABS: APPEARANCE CLOUDY ((CLEAR)); BILIRUBIN NEGATIVE; BLOOD SMALL; COLOR YELLOW ((YELLOW)); GLUCOSE (STRIP) NEGATIVE; KETONES NEGATIVE; LEUKOCYTES LARGE; NITRITE POSITIVE; PROTEIN (STRIP) 100; SPECIFIC GRAVITY 1.012 (1.000-1.030); UROBILINOGEN 0.2 MG/DL (0.2-1.0)
[2018-01-27 16:06] LABS: BACTERIA RARE /HPF; EPITHELIAL CELLS NONE SEEN /HPF; MUCUS NONE SEEN /LPF; RED BLOOD CELLS RARE /HPF (0-5); UCUL ADDED? YES; WHITE BLOOD CELLS 40-50 /HPF (0-5)
[2018-01-27] MEDS ORDERED: FERRIC CITRATE210 MG PO (20:00)
[2018-01-27] MEDS ORDERED: CALCITRIOL0.25 MCG PO (20:00)
[2018-01-27] MEDS ORDERED: ALLOPURINOL100 MG PO (20:01)
[2018-01-27] MEDS ORDERED: ROSUVASTATIN CA20 MG PO (20:02)
[2018-01-27] MEDS ORDERED: DIGESTIVE PROB250 MG PO (20:02)
[2018-01-27] MEDS ORDERED: BENTYL20 MG PO (20:02)
[2018-01-27] MEDS ORDERED: PREDNISONE5 MG PO (20:06)
[2018-01-27 20:46] LABS: INTER. NORMALIZED RATIO 1.4
[2018-01-27 20:49] LABS: PTT 23.9 SEC (25-37)
[2018-01-28] VITALS (11 sets, daily range): BP systolic 135–153; BP diastolic 62–81
[2018-01-28 02:30] LABS: COMMENTS - BLOOD GASES C+; DEVICE VENT; FI02 40 %; MECHANICAL RATE 12 resp/min; MODE ACVC; PCO2 37 mm Hg (35-45); PEEP 5 CM/H20; PO2 90 mm Hg (80-100); SITE RR; TIDAL VOLUME 600 ML; TOTAL RESP RATE 12 resp/min; pH 7.46 (7.35-7.45)
[2018-01-28 02:31] LABS: BASE EXCESS 2.4 mEq/L (-3 to +3); BICARBONATE 26.3 mEq/L (22-26); CARBOXY HGB 0.5 % (0-5); METHEMOGLOBIN 0.5 % (0-1.5); O2 SATURATION (CALCULATED) 96.2 % (95-99)
[2018-01-28 05:19] LABS: INTER. NORMALIZED RATIO 1.8
[2018-01-28 05:22] LABS: PTT 26.8 SEC (25-37)
[2018-01-28 05:36] LABS: HEMATOCRIT 21.7 % (38.0-50.0); MCH 32.7 PG (29.0-34.0); MCHC 32.3 G/DL (30.0-36.0); MCV 101.4 FL (86-99); RBC DIS.WIDTH-CV 16.1 % (11.8-14.6); RBC DIS.WIDTH-SD 59.7 % (39-53); RED BLOOD COUNT 2.14 M/uL (4.00-5.50); WHITE BLOOD COUNT 10.4 K/uL (4.1-10.2)
[2018-01-28 05:41] LABS: TRIGLYCERIDES 735 MG/DL (Normal: <150)
[2018-01-28 06:55] LABS: PLAT.SUFFICIENCY DECREASED
[2018-01-28 07:23] LABS: PLATELET COUNT 91 K/uL (156-360)
[2018-01-28 07:48] LABS: CHLORIDE 97 MEQ/L (99-109); CREATININE 5.1 MG/DL (0.6-1.3); GFR ESTIMATE (CALCULATED) 12 mL/min/ (58.99-99999); GLUCOSE 68 mg/dL (70-99); MAGNESIUM 1.4 mg/dl (1.3-2.7); PHOSPHORUS 3.8 mg/dL (2.5-4.9); POTASSIUM 3.8 MEQ/L (3.7-5.4); SODIUM 133 MEQ/L (136-147); UREA NITROGEN (BUN) 51 mg/dL (9-23)
[2018-01-28 09:04] LABS: HEMOGLOBIN A1c (GLYCOHEMOGLOB) 4.8 % (Below 5.7)
[2018-01-28 15:50] LABS: HEMATOCRIT 26.4 % (38.0-50.0); HEMOGLOBIN 8.5 G/DL (12.5-16.6); MCV 97.4 FL (86-99)
[2018-01-28 22:59] LABS: PCO2 38 mm Hg (35-45); PO2 94 mm Hg (80-100)
[2018-01-28 23:00] LABS: BICARBONATE 29.6 mEq/L (22-26); CARBOXY HGB 0.4 % (0-5); COMMENTS - BLOOD GASES C+; DEVICE VENT; FI02 30 %; METHEMOGLOBIN 0.2 % (0-1.5); MODE TC; O2 SATURATION (CALCULATED) 96.8 % (95-99); PEEP 5 CM/H20; SITE RB; TOTAL RESP RATE 20 resp/min
[2018-01-29] VITALS (20 sets, daily range): BP systolic 130–157; BP diastolic 58–76
[2018-01-29 05:19] LABS: HEMATOCRIT 24.3 % (38.0-50.0); HEMOGLOBIN 7.7 G/DL (12.5-16.6); MCH 30.8 PG (29.0-34.0); MCHC 31.7 G/DL (30.0-36.0); MCV 97.2 FL (86-99); PLATELET COUNT 104 K/uL (156-360); RBC DIS.WIDTH-CV 17.5 % (11.8-14.6); RBC DIS.WIDTH-SD 63.5 % (39-53); WHITE BLOOD COUNT 10.7 K/uL (4.1-10.2)
[2018-01-29 06:04] LABS: CHLORIDE 103 MEQ/L (99-109); SODIUM 139 MEQ/L (136-147); UREA NITROGEN (BUN) 33 mg/dL (9-23)
[2018-01-29 06:08] LABS: CREATININE 4.1 MG/DL (0.6-1.3); GFR ESTIMATE (CALCULATED) 16 mL/min/ (58.99-99999); GLUCOSE 131 mg/dL (70-99); MAGNESIUM 1.9 mg/dl (1.3-2.7)
[2018-01-30] VITALS (7 sets, daily range): BP systolic 145–168; BP diastolic 74–79
[2018-01-30 04:59] LABS: HEMATOCRIT 23.1 % (38.0-50.0); HEMOGLOBIN 7.3 G/DL (12.5-16.6); MCH 31.1 PG (29.0-34.0); MCHC 31.6 G/DL (30.0-36.0); MCV 98.3 FL (86-99); PLATELET COUNT 90 K/uL (156-360); RBC DIS.WIDTH-SD 60.8 % (39-53); RED BLOOD COUNT 2.35 M/uL (4.00-5.50)
[2018-01-30 06:13] LABS: CHLORIDE 104 MEQ/L (99-109); CREATININE 4.7 MG/DL (0.6-1.3); GFR ESTIMATE (CALCULATED) 13 mL/min/ (58.99-99999); PHOSPHORUS 3.6 mg/dL (2.5-4.9); POTASSIUM 3.8 MEQ/L (3.7-5.4); SODIUM 141 MEQ/L (136-147); UREA NITROGEN (BUN) 42 mg/dL (9-23)
[2018-01-30 06:19] LABS: GLUCOSE 92 mg/dL (70-99)
[2018-01-31 04:43] VITALS: BP 146/72
[2018-01-31 05:09] LABS: HEMATOCRIT 27.6 % (38.0-50.0); HEMOGLOBIN 8.7 G/DL (12.5-16.6); MCHC 31.5 G/DL (30.0-36.0); MCV 95.2 FL (86-99); RBC DIS.WIDTH-CV 17.9 % (11.8-14.6); RBC DIS.WIDTH-SD 62.6 % (39-53); WHITE BLOOD COUNT 11.5 K/uL (4.1-10.2)
[2018-01-31 05:15] LABS: PLATELET COUNT 120 K/uL (156-360)
[2018-01-31 05:47] LABS: CHLORIDE 104 MEQ/L (99-109); GLUCOSE 107 mg/dL (70-99); POTASSIUM 3.8 MEQ/L (3.7-5.4); SODIUM 140 MEQ/L (136-147); UREA NITROGEN (BUN) 25 mg/dL (9-23)
[2018-01-31 05:57] LABS: CREATININE 3.5 MG/DL (0.6-1.3); GFR ESTIMATE (CALCULATED) 19 mL/min/ (58.99-99999); PHOSPHORUS 1.9 mg/dL (2.5-4.9)
[2018-01-31 08:30] VITALS: BP 169/83
[2018-01-31 11:20] VITALS: BP 121/75
[2018-01-31 12:55] LABS: TROP-I INTERPRETATION NEGATIVE; TROPONIN-I 0.02 ng/mL (0.0-0.30)
[2018-01-31 15:25] VITALS: BP 128/71
[2018-01-31 20:22] VITALS: BP 144/88
[2018-02-01] VITALS (7 sets, daily range): BP systolic 98–177; BP diastolic 66–83
[2018-02-01 08:00] LABS: BASOPHIL (%) 0.2 % (0-1); EOSINOPHIL (%) 2.4 % (0-5); EOSINOPHIL COUNT 0.3 K/uL (0-0.3); HEMATOCRIT 29.2 % (38.0-50.0); HEMOGLOBIN 9.2 G/DL (12.5-16.6); IMMATURE GRANULOCYTE (%) 2.6 % (0.0-0.7); LYMPHOCYTE (%) 7.3 % (15-42); LYMPHOCYTE COUNT 0.9 K/uL (1.0-2.8); MCH 30.4 PG (29.0-34.0); MCHC 31.5 G/DL (30.0-36.0); MCV 96.4 FL (86-99); MONOCYTE COUNT 0.6 K/uL (0-0.8); NEUTROPHIL (%) 82.5 % (45-76); NEUTROPHIL COUNT 10.3 K/uL (1.8-6.4); RBC DIS.WIDTH-CV 17.9 % (11.8-14.6); RBC DIS.WIDTH-SD 63.1 % (39-53); RED BLOOD COUNT 3.03 M/uL (4.00-5.50); WHITE BLOOD COUNT 12.5 K/uL (4.1-10.2)
[2018-02-01 08:02] LABS: PLATELET COUNT 159 K/uL (156-360)
[2018-02-01 08:14] LABS: ALBUMIN 2.3 G/DL (3.2-4.8); CHLORIDE 103 MEQ/L (99-109); SODIUM 139 MEQ/L (136-147)
[2018-02-01 08:20] LABS: CREATININE 4.8 MG/DL (0.6-1.3); GFR ESTIMATE (CALCULATED) 13 mL/min/ (58.99-99999); GLUCOSE 111 mg/dL (70-99); PHOSPHORUS 3.1 mg/dL (2.5-4.9); UREA NITROGEN (BUN) 37 mg/dL (9-23)
[2018-02-02 01:12] VITALS: BP 151/67
[2018-02-02 05:33] VITALS: BP 111/54
[2018-02-02 07:32] VITALS: BP 131/63
[2018-02-02 11:42] VITALS: BP 109/63
[2018-02-02 15:02] VITALS: BP 127/64
[2018-02-02 20:04] VITALS: BP 119/62
[2018-02-03 05:25] VITALS: BP 130/67
[2018-02-03 07:42] VITALS: BP 119/58
[2018-02-03 08:24] LABS: ALBUMIN 2.2 G/DL (3.2-4.8); CHLORIDE 102 MEQ/L (99-109); CREATININE 4.5 MG/DL (0.6-1.3); GFR ESTIMATE (CALCULATED) 14 mL/min/ (58.99-99999); GLUCOSE 146 mg/dL (70-99); PHOSPHORUS 2.8 mg/dL (2.5-4.9); POTASSIUM 3.5 MEQ/L (3.7-5.4); SODIUM 137 MEQ/L (136-147); UREA NITROGEN (BUN) 27 mg/dL (9-23)
[2018-02-03 08:33] LABS: HEMATOCRIT 25.3 % (38.0-50.0); HEMOGLOBIN 7.9 G/DL (12.5-16.6); MCH 30.2 PG (29.0-34.0); MCHC 31.2 G/DL (30.0-36.0); MCV 96.6 FL (86-99); RBC DIS.WIDTH-CV 17.5 % (11.8-14.6); RBC DIS.WIDTH-SD 62.4 % (39-53); RED BLOOD COUNT 2.62 M/uL (4.00-5.50); WHITE BLOOD COUNT 10.6 K/uL (4.1-10.2)
[2018-02-03 08:57] LABS: ABS NEUTROPHIL COUNT 8.6; EOSINOPHIL ABS CT 0.2; PLATELET COUNT 214 K/uL (156-360)
[2018-02-03 11:58] VITALS: BP 123/66
[2018-02-03 12:07] VITALS: BP 123/66
[2018-02-03] MEDS ORDERED: DILTIAZEM 24HR240 MG PO (16:10)
[2018-02-03] MEDS ORDERED: LABETALOL HCL200 MG PO (16:14)
[2018-02-03] MEDS ORDERED: CHLORZOXAZONE500 MG PO (16:15)
[2018-02-03] MEDS ORDERED: ZOSYN 3.3753.375 GM IV (16:18)
[2018-02-03] MEDS ORDERED: ATORVASTATIN CA40 MG PO (17:55)
[2018-02-03] MEDS ORDERED: HEPARIN SO1000 UNIT1 IV (17:57)
[2018-02-03] MEDS ORDERED: PROVENTIL,2.5 MG/0.5 IH (17:59)
[2018-02-03] MEDS ORDERED: PERCOCET 5/31 TABLET PO (18:01)
[2018-02-03] MEDS ORDERED: ANODYNE LPT 2.1 EACH TP (18:04)
[2018-02-03] MEDS ORDERED: APRESOLINE20 MG/ML IM (18:06)
[2018-02-03] MEDS ORDERED: NEPHRO-VITE,1 TABLET PO (18:06)
[2018-02-03] MEDS ORDERED: NOVOLOG PE100 UNITS/ SC (18:07)
[2018-02-03] MEDS ORDERED: VALIUM5 MG PO (18:08)
[2018-02-03] MEDS ORDERED: ENTEREG12 MG PO (18:09)
[2018-02-03] MEDS ORDERED: ARANESP100 MCG/0. SC (18:10)
[2018-02-03] MEDS ORDERED: HEPARIN SO5000 UNIT4 SC (18:11)
[2018-02-03] MEDS ORDERED: ZOFRAN4 MG/2 ML IM (18:13)
[2018-02-03] MEDS ORDERED: PEPCID20 MG/50 M IV (18:13)
== END 2018-02-03 17:09 | DRG 329 ==
LOC: EME 12:09 → ENRESERV 21:24 → SDC 22:10 → 4EAST 22:42 → 2SOUTH 22:42 → 4WEST 22:42 → ENRESERV 01-28 09:26 → 4WEST 01-28 12:11 → ENRESERV 01-29 20:26 → CANRESERV 01-29 20:38 → ENRESERV 01-29 20:38 → 4EAST 01-29 21:33 → ENRESERV 02-03 10:09 → CANRESERV 02-03 10:35 → 4EAST 02-03 17:09
PROVIDERS: Emergency Medicine; Hospitalist; Internal Medicine Nephrology; Specialist; Surgery
DX: K65.0 Generalized (acute) peritonitis (principal); K63.1 Perforation of intestine (nontraumatic); N18.6 End stage renal disease; A41.9 Sepsis, unspecified organism; J96.00 Acute respiratory failure, unspecified whether with hypoxia or hypercapnia; M48.56XA Collapsed vertebra, not elsewhere classified, lumbar region, initial encounter for fracture; J98.11 Atelectasis; J90 Pleural effusion, not elsewhere classified; D68.9 Coagulation defect, unspecified; I12.0 Hypertensive chronic kidney disease with stage 5 chronic kidney disease or end stage renal disease; Z68.42 Body mass index [BMI] 45.0-49.9, adult; E66.01 Morbid (severe) obesity due to excess calories; D63.1 Anemia in chronic kidney disease; D69.6 Thrombocytopenia, unspecified; E03.9 Hypothyroidism, unspecified; E11.22 Type 2 diabetes mellitus with diabetic chronic kidney disease; E78.5 Hyperlipidemia, unspecified; E86.0 Dehydration; E87.6 Hypokalemia; K66.8 Other specified disorders of peritoneum; F17.210 Nicotine dependence, cigarettes, uncomplicated; G47.33 Obstructive sleep apnea (adult) (pediatric); G89.29 Other chronic pain; I25.10 Atherosclerotic heart disease of native coronary artery without angina pectoris; I27.20 Pulmonary hypertension, unspecified; I48.0 Paroxysmal atrial fibrillation; K82.8 Other specified diseases of gallbladder; M10.9 Gout, unspecified; K52.9 Noninfective gastroenteritis and colitis, unspecified; Z99.2 Dependence on renal dialysis; Z98.0 Intestinal bypass and anastomosis status; Z91.81 History of falling; Z85.858 Personal history of malignant neoplasm of other endocrine glands; Z87.442 Personal history of urinary calculi; Z85.46 Personal history of malignant neoplasm of prostate; Z82.49 Family history of ischemic heart disease and other diseases of the circulatory system; Z80.6 Family history of leukemia
CPT/HCPCS: 36600; 71045; 74177; 80048; 80053; 80069; 81003; 82330; 82948; 83036; 83605; 83690; 83735; 84100; 84478; 84484; 85014; 85018; 85025; 85027; 85610; 85730; 86850; 86900; 86901; 86920; 87040; 87070; 87075; 87076; 87077; 87086; 87185; 87186; 87205; 87641; 88307; 93005; 94002; 94640; 94760; 94799; 99281; 99285; B4087; J0881; J1170; J1644; J2250; J2270; J2405; J2543; J2704; J3010; J3475; J3480; J7030; J7040; J7050; P9016; S0028

== ENCOUNTER 2018-02-03 14:02 | Inpatient (IN) | payer OTHER, BC ==
[~2018-02-03] VITALS: Ht 182.9 cm; Wt 102.2 kg
[~2018-02-03 14:02] MED LIST changes: +ALLOPURINOL100 MG PO; +CALCITRIOL0.25 MCG PO; +DIGESTIVE PROB250 MG PO; +PREDNISONE5 MG PO; +ROSUVASTATIN CA20 MG PO
[2018-02-03] MEDS ORDERED: DILTIAZEM 24HR240 MG PO (16:10)
[2018-02-03] MEDS ORDERED: LABETALOL HCL200 MG PO (16:14)
[2018-02-03] MEDS ORDERED: CHLORZOXAZONE500 MG PO (16:15)
[2018-02-03] MEDS ORDERED: ZOSYN 3.3753.375 GM IV (16:18)
[2018-02-03 17:25] VITALS: BP 132/61
[2018-02-03] MEDS ORDERED: ATORVASTATIN CA40 MG PO (17:55)
[2018-02-03] MEDS ORDERED: HEPARIN SO1000 UNIT1 IV (17:57)
[2018-02-03] MEDS ORDERED: PROVENTIL,2.5 MG/0.5 IH (17:59)
[2018-02-03] MEDS ORDERED: PERCOCET 5/31 TABLET PO (18:01)
[2018-02-03] MEDS ORDERED: ANODYNE LPT 2.1 EACH TP (18:04)
[2018-02-03] MEDS ORDERED: APRESOLINE20 MG/ML IM (18:06)
[2018-02-03] MEDS ORDERED: NEPHRO-VITE,1 TABLET PO (18:06)
[2018-02-03] MEDS ORDERED: NOVOLOG PE100 UNITS/ SC (18:07)
[2018-02-03] MEDS ORDERED: VALIUM5 MG PO (18:08)
[2018-02-03] MEDS ORDERED: ENTEREG12 MG PO (18:09)
[2018-02-03] MEDS ORDERED: ARANESP100 MCG/0. SC (18:10)
[2018-02-03] MEDS ORDERED: HEPARIN SO5000 UNIT4 SC (18:11)
[2018-02-03] MEDS ORDERED: ZOFRAN4 MG/2 ML IM (18:13)
[2018-02-03] MEDS ORDERED: PEPCID20 MG/50 M IV (18:13)
[2018-02-03 22:13] VITALS: BP 145/67
[2018-02-04 05:06] VITALS: BP 143/68
[2018-02-04 05:21] LABS: HEMATOCRIT 24.3 % (38.0-50.0); HEMOGLOBIN 7.5 G/DL (12.5-16.6); MCH 29.9 PG (29.0-34.0); MCHC 30.9 G/DL (30.0-36.0); MCV 96.8 FL (86-99); PLATELET COUNT 203 K/uL (156-360); RBC DIS.WIDTH-CV 17.4 % (11.8-14.6); RBC DIS.WIDTH-SD 61.9 % (39-53); RED BLOOD COUNT 2.51 M/uL (4.00-5.50); WHITE BLOOD COUNT 9.9 K/uL (4.1-10.2)
[2018-02-04 06:02] LABS: ALBUMIN 1.8 G/DL (3.2-4.8); ALKALINE PHOSPHATASE 115 IU/L (3-129); ALT (GPT) 26 IU/L (3-49); AST (GOT) 33 IU/L (2-34); CHLORIDE 104 MEQ/L (99-109); GFR ESTIMATE (CALCULATED) 18 mL/min/ (58.99-99999); POTASSIUM 3.8 MEQ/L (3.7-5.4); SODIUM 141 MEQ/L (136-147); TOTAL BILIRUBIN 0.3 MG/DL (0.0-1.0); UREA NITROGEN (BUN) 19 mg/dL (9-23)
[2018-02-04 06:06] LABS: CREATININE 3.7 MG/DL (0.6-1.3); GLUCOSE 99 mg/dL (70-99)
[2018-02-04 15:37] VITALS: BP 141/67
[2018-02-05 06:01] VITALS: BP 129/63
[2018-02-05 15:47] VITALS: BP 113/66
[2018-02-06 04:50] VITALS: BP 141/74
[2018-02-06 09:48] LABS: HEMATOCRIT 22.1 % (38.0-50.0); MCH 30.4 PG (29.0-34.0); MCHC 31.7 G/DL (30.0-36.0); MCV 96.1 FL (86-99); PLATELET COUNT 228 K/uL (156-360); RBC DIS.WIDTH-CV 17.3 % (11.8-14.6); RBC DIS.WIDTH-SD 61.2 % (39-53); WHITE BLOOD COUNT 11.2 K/uL (4.1-10.2)
[2018-02-06 09:51] LABS: ALBUMIN 2.2 G/DL (3.2-4.8); CHLORIDE 104 MEQ/L (99-109); GLUCOSE 124 mg/dL (70-99); IRON 34 MCG/DL (35-150); POTASSIUM 3.9 MEQ/L (3.7-5.4); SODIUM 137 MEQ/L (136-147); TRANSFERRIN (TIBC) 119.2 mg/dL (215-380); TRANSFERRIN SATUR. 29 % (20-55)
[2018-02-06 09:54] LABS: GFR ESTIMATE (CALCULATED) 10 mL/min/ (58.99-99999); PHOSPHORUS 1.8 mg/dL (2.5-4.9); UREA NITROGEN (BUN) 36 mg/dL (9-23)
[2018-02-06 10:31] LABS: FOLIC ACID (FOLATE) 13.2 NG/ML (5.0-22.0)
[2018-02-06 10:57] LABS: HEPATITIS B SURFACE ANTIGEN Nonreactive
[2018-02-06 13:22] VITALS: BP 126/74
[2018-02-06 15:53] VITALS: BP 119/62
[2018-02-06 19:36] VITALS: BP 118/60
[2018-02-06 20:23] LABS: HEMATOCRIT 21.5 % (38.0-50.0); MCH 30.5 PG (29.0-34.0); MCHC 31.6 G/DL (30.0-36.0); MCV 96.4 FL (86-99); PLATELET COUNT 228 K/uL (156-360); RBC DIS.WIDTH-CV 17.4 % (11.8-14.6); RBC DIS.WIDTH-SD 61.1 % (39-53); RED BLOOD COUNT 2.23 M/uL (4.00-5.50); WHITE BLOOD COUNT 13.8 K/uL (4.1-10.2)
[2018-02-06 20:24] LABS: HEMOGLOBIN 6.8 G/DL (12.5-16.6)
[2018-02-06 21:27] LABS: INTER. NORMALIZED RATIO 1.2
[2018-02-06 23:17] VITALS: BP 130/73
[2018-02-06 23:35] VITALS: BP 147/70
[2018-02-07 00:35] VITALS: BP 131/63
[2018-02-07 01:44] VITALS: BP 157/66
[2018-02-07 02:32] VITALS: BP 137/65
[2018-02-07 02:58] VITALS: BP 141/65
[2018-02-07 03:49] LABS: HEMATOCRIT 23.7 % (38.0-50.0); HEMOGLOBIN 7.5 G/DL (12.5-16.6)
[2018-02-07 05:11] VITALS: BP 140/61
[2018-02-07 06:48] LABS: HEMATOCRIT 22.3 % (38.0-50.0); MCH 29.7 PG (29.0-34.0); MCHC 31.4 G/DL (30.0-36.0); MCV 94.5 FL (86-99); PLATELET COUNT 215 K/uL (156-360); RBC DIS.WIDTH-CV 18.6 % (11.8-14.6); RBC DIS.WIDTH-SD 64.6 % (39-53); RED BLOOD COUNT 2.36 M/uL (4.00-5.50); WHITE BLOOD COUNT 11.1 K/uL (4.1-10.2)
[2018-02-07 07:26] LABS: CHLORIDE 105 MEQ/L (99-109); GFR ESTIMATE (CALCULATED) 13 mL/min/ (58.99-99999); GLUCOSE 93 mg/dL (70-99); POTASSIUM 3.8 MEQ/L (3.7-5.4); SODIUM 142 MEQ/L (136-147); UREA NITROGEN (BUN) 24 mg/dL (9-23)
[2018-02-07 07:27] LABS: CREATININE 4.7 MG/DL (0.6-1.3)
== END 2018-02-07 09:00 | DRG 945 ==
LOC: 3WEST 14:02
PROVIDERS: Family Medicine Sports Medicine; Internal Medicine Nephrology; Physical Medicine & Rehabilitation Pain Medicine; Psychiatry & Neurology Neurology; Surgery
PROC: F07M0ZZ Range of Motion and Joint Mobility Treatment of Musculoskeletal System - Whole Body (ICD-10-PCS; principal; 2018-02-03)
PROC: 30233N1 Transfusion of Nonautologous Red Blood Cells into Peripheral Vein, Percutaneous Approach (ICD-10-PCS; 2018-02-06)
PROC: 5A1D70Z Performance of Urinary Filtration, Intermittent, Less than 6 Hours Per Day (ICD-10-PCS; 2018-02-06)
DX: R53.1 Weakness (principal); N18.6 End stage renal disease; G93.40 Encephalopathy, unspecified; K65.0 Generalized (acute) peritonitis; Z68.42 Body mass index [BMI] 45.0-49.9, adult; I12.0 Hypertensive chronic kidney disease with stage 5 chronic kidney disease or end stage renal disease; N25.81 Secondary hyperparathyroidism of renal origin; K94.01 Colostomy hemorrhage; D68.9 Coagulation defect, unspecified; J90 Pleural effusion, not elsewhere classified; D63.1 Anemia in chronic kidney disease; E03.9 Hypothyroidism, unspecified; E11.22 Type 2 diabetes mellitus with diabetic chronic kidney disease; E66.01 Morbid (severe) obesity due to excess calories; E78.5 Hyperlipidemia, unspecified; E87.6 Hypokalemia; G47.33 Obstructive sleep apnea (adult) (pediatric); G89.18 Other acute postprocedural pain; G89.29 Other chronic pain; I25.10 Atherosclerotic heart disease of native coronary artery without angina pectoris; I48.0 Paroxysmal atrial fibrillation; M10.9 Gout, unspecified; R32 Unspecified urinary incontinence; R26.9 Unspecified abnormalities of gait and mobility; R27.8 Other lack of coordination; Z85.46 Personal history of malignant neoplasm of prostate; Z99.2 Dependence on renal dialysis; Z85.858 Personal history of malignant neoplasm of other endocrine glands
CPT/HCPCS: 80048; 80053; 80069; 82607; 82746; 82948; 83540; 84466; 85014; 85018; 85027; 85610; 86850; 86900; 86901; 86920; 87340; 94799; 97110 GO; 97530 GP; C9113; J0881; J1644; J1815; J2543; J7050; P9016

== ENCOUNTER 2018-02-07 07:20 | Inpatient (IN) | payer OTHER, BC ==
[~2018-02-07 07:20] MED LIST changes: +ANODYNE LPT 2.1 EACH TP; +APRESOLINE20 MG/ML IM; +ARANESP100 MCG/0. SC; +ATORVASTATIN CA40 MG PO; +CHLORZOXAZONE500 MG PO; +DILTIAZEM 24HR240 MG PO; +ENTEREG12 MG PO; +HEPARIN SO1000 UNIT1 IV; +HEPARIN SO5000 UNIT4 SC; +NOVOLOG PE100 UNITS/ SC; +PEPCID20 MG/50 M IV; +PERCOCET 5/31 TABLET PO; +PROVENTIL,2.5 MG/0.5 IH; +VALIUM5 MG PO; +ZOFRAN4 MG/2 ML IM; +ZOSYN 3.3753.375 GM IV
[2018-02-07 09:19] VITALS: BP 117/59
[2018-02-07 11:35] VITALS: BP 136/62
[2018-02-07 12:36] LABS: HEMATOCRIT 23.7 % (38.0-50.0); HEMOGLOBIN 7.4 G/DL (12.5-16.6); MCV 95.2 FL (86-99)
[2018-02-07 15:37] VITALS: BP 135/71
[2018-02-07 18:17] LABS: HEMOGLOBIN 7.1 G/DL (12.5-16.6); MCV 95.4 FL (86-99)
[2018-02-07 19:40] VITALS: BP 138/74
[2018-02-07 23:11] VITALS: BP 151/73
[2018-02-08 01:30] LABS: HEMATOCRIT 22.1 % (38.0-50.0); HEMOGLOBIN 7.1 G/DL (12.5-16.6); MCV 94.4 FL (86-99)
[2018-02-08 03:34] VITALS: BP 154/72
[2018-02-08 05:47] LABS: BASOPHIL (%) 0.6 % (0-1); BASOPHIL COUNT 0.1 K/uL (0-0.1); EOSINOPHIL (%) 1.9 % (0-5); EOSINOPHIL COUNT 0.2 K/uL (0-0.3); HEMATOCRIT 23.7 % (38.0-50.0); HEMOGLOBIN 7.2 G/DL (12.5-16.6); IMMATURE GRANULOCYTE (%) 4.9 % (0.0-0.7); LYMPHOCYTE COUNT 1.3 K/uL (1.0-2.8); MCH 29.4 PG (29.0-34.0); MCHC 30.4 G/DL (30.0-36.0); MCV 96.7 FL (86-99); MONOCYTE (%) 7.2 % (3-12); MONOCYTE COUNT 0.7 K/uL (0-0.8); NEUTROPHIL (%) 71.4 % (45-76); NEUTROPHIL COUNT 6.4 K/uL (1.8-6.4); PLATELET COUNT 230 K/uL (156-360); RBC DIS.WIDTH-CV 18.3 % (11.8-14.6); RBC DIS.WIDTH-SD 65.1 % (39-53); RED BLOOD COUNT 2.45 M/uL (4.00-5.50)
[2018-02-08 06:28] LABS: ALKALINE PHOSPHATASE 85 IU/L (3-129); ALT (GPT) 22 IU/L (3-49); AST (GOT) 24 IU/L (2-34); CHLORIDE 105 MEQ/L (99-109); CREATININE 5.2 MG/DL (0.6-1.3); GFR ESTIMATE (CALCULATED) 12 mL/min/ (58.99-99999); GLUCOSE 96 mg/dL (70-99); POTASSIUM 4.1 MEQ/L (3.7-5.4); SODIUM 140 MEQ/L (136-147); TOTAL BILIRUBIN 0.4 MG/DL (0.0-1.0); TOTAL PROTEIN 4.1 G/DL (6.4-8.3); UREA NITROGEN (BUN) 25 mg/dL (9-23)
[2018-02-08 07:41] VITALS: BP 135/75
[2018-02-08 07:47] LABS: THYROTROPIN (TSH) 2.7 MIU/L (0.4-5.5)
[2018-02-08 08:45] LABS: BASOPHIL (%) 0.2 % (0-1); EOSINOPHIL (%) 1.9 % (0-5); EOSINOPHIL COUNT 0.2 K/uL (0-0.3); HEMATOCRIT 19.6 % (38.0-50.0); HEMOGLOBIN 6.3 G/DL (12.5-16.6); IMMATURE GRANULOCYTE (%) 3.9 % (0.0-0.7); LYMPHOCYTE (%) 12.9 % (15-42); LYMPHOCYTE COUNT 1.1 K/uL (1.0-2.8); MCH 30.1 PG (29.0-34.0); MCHC 32.1 G/DL (30.0-36.0); MCV 93.8 FL (86-99); MONOCYTE COUNT 0.5 K/uL (0-0.8); NEUTROPHIL (%) 75.1 % (45-76); NEUTROPHIL COUNT 6.2 K/uL (1.8-6.4); PLATELET COUNT 229 K/uL (156-360); RBC DIS.WIDTH-CV 18.4 % (11.8-14.6); RBC DIS.WIDTH-SD 63.3 % (39-53); RED BLOOD COUNT 2.09 M/uL (4.00-5.50); WHITE BLOOD COUNT 8.2 K/uL (4.1-10.2)
[2018-02-08 12:30] VITALS: BP 140/67
[2018-02-08 13:48] LABS: HEMATOCRIT 27.5 % (38.0-50.0); MCV 90.8 FL (86-99)
[2018-02-08 14:37] LABS: HEMOGLOBIN 8.9 G/DL (12.5-16.6)
[2018-02-08 15:08] VITALS: BP 139/75
[2018-02-08 18:49] LABS: HEMOGLOBIN 8.5 G/DL (12.5-16.6); MCV 91.5 FL (86-99)
[2018-02-08 19:34] VITALS: BP 123/63
[2018-02-08 23:22] VITALS: BP 127/69
[2018-02-09 03:05] VITALS: BP 128/72
[2018-02-09 05:52] LABS: BASOPHIL (%) 0.7 % (0-1); BASOPHIL COUNT 0.1 K/uL (0-0.1); EOSINOPHIL (%) 1.4 % (0-5); EOSINOPHIL COUNT 0.1 K/uL (0-0.3); HEMATOCRIT 23.9 % (38.0-50.0); HEMOGLOBIN 7.6 G/DL (12.5-16.6); LYMPHOCYTE (%) 17.9 % (15-42); LYMPHOCYTE COUNT 1.5 K/uL (1.0-2.8); MCH 29.1 PG (29.0-34.0); MCHC 31.8 G/DL (30.0-36.0); MCV 91.6 FL (86-99); MONOCYTE (%) 8.3 % (3-12); MONOCYTE COUNT 0.7 K/uL (0-0.8); NEUTROPHIL (%) 67.7 % (45-76); NEUTROPHIL COUNT 5.7 K/uL (1.8-6.4); PLATELET COUNT 216 K/uL (156-360); RBC DIS.WIDTH-CV 18.5 % (11.8-14.6); RBC DIS.WIDTH-SD 60.4 % (39-53); WHITE BLOOD COUNT 8.4 K/uL (4.1-10.2)
[2018-02-09 05:59] LABS: RED BLOOD COUNT 2.61 M/uL (4.00-5.50)
[2018-02-09 08:10] VITALS: BP 132/64
[2018-02-09 11:54] VITALS: BP 161/74
[2018-02-09 17:20] VITALS: BP 169/69
[2018-02-09 19:54] VITALS: BP 131/73
[2018-02-09 23:59] VITALS: BP 107/62
[2018-02-10 03:22] VITALS: BP 103/66
[2018-02-10 06:00] LABS: BASOPHIL (%) 0.4 % (0-1); EOSINOPHIL (%) 1.1 % (0-5); EOSINOPHIL COUNT 0.1 K/uL (0-0.3); HEMATOCRIT 20.5 % (38.0-50.0); IMMATURE GRANULOCYTE (%) 2.6 % (0.0-0.7); LYMPHOCYTE (%) 12.1 % (15-42); LYMPHOCYTE COUNT 1.3 K/uL (1.0-2.8); MCH 29.5 PG (29.0-34.0); MCHC 31.7 G/DL (30.0-36.0); MCV 93.2 FL (86-99); MONOCYTE (%) 6.8 % (3-12); MONOCYTE COUNT 0.7 K/uL (0-0.8); PLATELET COUNT 226 K/uL (156-360); RBC DIS.WIDTH-CV 17.8 % (11.8-14.6); RBC DIS.WIDTH-SD 59.3 % (39-53); WHITE BLOOD COUNT 10.4 K/uL (4.1-10.2)
[2018-02-10 06:12] LABS: HEMOGLOBIN 6.5 G/DL (12.5-16.6)
[2018-02-10 07:20] VITALS: BP 107/63; BP 99/63
[2018-02-10 07:33] LABS: ALBUMIN 1.8 G/DL (3.2-4.8); CHLORIDE 102 MEQ/L (99-109); CREATININE 5.3 MG/DL (0.6-1.3); GFR ESTIMATE (CALCULATED) 12 mL/min/ (58.99-99999); GLUCOSE 107 mg/dL (70-99); PHOSPHORUS 3.7 mg/dL (2.5-4.9); SODIUM 138 MEQ/L (136-147); UREA NITROGEN (BUN) 24 mg/dL (9-23)
[2018-02-10 10:17] LABS: HEPATITIS B SURFACE ANTIGEN Nonreactive
[2018-02-10 10:18] LABS: HEPATITIS B SURFACE ANTIBODY Nonreactive
[2018-02-10 12:30] VITALS: BP 132/88
[2018-02-10 16:30] VITALS: BP 112/67
[2018-02-10 19:29] VITALS: BP 111/53
[2018-02-10 23:42] VITALS: BP 112/69
[2018-02-11 03:35] VITALS: BP 111/66
[2018-02-11 05:36] LABS: BASOPHIL (%) 0.5 % (0-1); EOSINOPHIL (%) 1.6 % (0-5); EOSINOPHIL COUNT 0.1 K/uL (0-0.3); HEMATOCRIT 23.3 % (38.0-50.0); HEMOGLOBIN 7.6 G/DL (12.5-16.6); IMMATURE GRANULOCYTE (%) 4.8 % (0.0-0.7); LYMPHOCYTE (%) 21.6 % (15-42); LYMPHOCYTE COUNT 1.8 K/uL (1.0-2.8); MCH 29.6 PG (29.0-34.0); MCHC 32.6 G/DL (30.0-36.0); MCV 90.7 FL (86-99); MONOCYTE (%) 7.7 % (3-12); MONOCYTE COUNT 0.7 K/uL (0-0.8); NEUTROPHIL (%) 63.8 % (45-76); NEUTROPHIL COUNT 5.4 K/uL (1.8-6.4); NRBC (%) 0.2 /100 WBC (0-0); PLATELET COUNT 181 K/uL (156-360); RBC DIS.WIDTH-CV 17.4 % (11.8-14.6); RBC DIS.WIDTH-SD 56.4 % (39-53); RED BLOOD COUNT 2.57 M/uL (4.00-5.50); WHITE BLOOD COUNT 8.5 K/uL (4.1-10.2)
[2018-02-11 08:37] VITALS: BP 133/64
[2018-02-11 11:44] VITALS: BP 86/56
[2018-02-11 15:31] VITALS: BP 120/66
[2018-02-11 20:32] VITALS: BP 115/63
[2018-02-11 23:31] VITALS: BP 115/68
[2018-02-12] VITALS (7 sets, daily range): BP systolic 100–137; BP diastolic 58–80
[2018-02-12 08:57] LABS: HEMATOCRIT 24.7 % (38.0-50.0); HEMOGLOBIN 7.7 G/DL (12.5-16.6); MCV 93.6 FL (86-99)
[2018-02-12 18:01] LABS: HEMATOCRIT 25.1 % (38.0-50.0); MCV 92.6 FL (86-99)
[2018-02-13 04:05] VITALS: BP 137/69
[2018-02-13 08:50] LABS: BASOPHIL (%) 0.6 % (0-1); BASOPHIL COUNT 0.1 K/uL (0-0.1); EOSINOPHIL (%) 2.9 % (0-5); EOSINOPHIL COUNT 0.2 K/uL (0-0.3); HEMATOCRIT 22.7 % (38.0-50.0); HEMOGLOBIN 7.3 G/DL (12.5-16.6); IMMATURE GRANULOCYTE (%) 4.9 % (0.0-0.7); LYMPHOCYTE (%) 12.5 % (15-42); MCH 29.8 PG (29.0-34.0); MCHC 32.2 G/DL (30.0-36.0); MCV 92.7 FL (86-99); MONOCYTE (%) 5.6 % (3-12); MONOCYTE COUNT 0.5 K/uL (0-0.8); NEUTROPHIL (%) 73.5 % (45-76); NEUTROPHIL COUNT 5.9 K/uL (1.8-6.4); NRBC (%) 0.2 /100 WBC (0-0); PLATELET COUNT 200 K/uL (156-360); RBC DIS.WIDTH-CV 17.1 % (11.8-14.6); RBC DIS.WIDTH-SD 55.8 % (39-53); RED BLOOD COUNT 2.45 M/uL (4.00-5.50)
[2018-02-13 09:16] LABS: ALBUMIN 2.1 G/DL (3.2-4.8); CHLORIDE 104 MEQ/L (99-109); GFR ESTIMATE (CALCULATED) 8 mL/min/ (58.99-99999); GLUCOSE 141 mg/dL (70-99); PHOSPHORUS 3.5 mg/dL (2.5-4.9); POTASSIUM 3.5 MEQ/L (3.7-5.4); SODIUM 138 MEQ/L (136-147); UREA NITROGEN (BUN) 30 mg/dL (9-23)
[2018-02-13 09:19] LABS: CREATININE 7.5 MG/DL (0.6-1.3)
[2018-02-13 12:38] VITALS: BP 134/79
[2018-02-13 15:45] VITALS: BP 126/67
[2018-02-13 18:40] LABS: HEMATOCRIT 25.1 % (38.0-50.0); MCV 93.7 FL (86-99)
[2018-02-13 19:35] VITALS: BP 100/62
[2018-02-14] VITALS (7 sets, daily range): BP systolic 107–169; BP diastolic 65–80
[2018-02-14 05:54] LABS: BASOPHIL (%) 0.5 % (0-1); EOSINOPHIL (%) 2.4 % (0-5); EOSINOPHIL COUNT 0.2 K/uL (0-0.3); HEMATOCRIT 23.4 % (38.0-50.0); HEMOGLOBIN 7.4 G/DL (12.5-16.6); IMMATURE GRANULOCYTE (%) 3.6 % (0.0-0.7); LYMPHOCYTE (%) 16.8 % (15-42); LYMPHOCYTE COUNT 1.3 K/uL (1.0-2.8); MCH 30.1 PG (29.0-34.0); MCHC 31.6 G/DL (30.0-36.0); MCV 95.1 FL (86-99); MONOCYTE (%) 7.3 % (3-12); MONOCYTE COUNT 0.5 K/uL (0-0.8); NEUTROPHIL (%) 69.4 % (45-76); NEUTROPHIL COUNT 5.1 K/uL (1.8-6.4); PLATELET COUNT 185 K/uL (156-360); RBC DIS.WIDTH-CV 17.3 % (11.8-14.6); RBC DIS.WIDTH-SD 57.2 % (39-53); RED BLOOD COUNT 2.46 M/uL (4.00-5.50); WHITE BLOOD COUNT 7.4 K/uL (4.1-10.2)
[2018-02-14 15:44] LABS: HEMATOCRIT 25.1 % (38.0-50.0); HEMOGLOBIN 7.9 G/DL (12.5-16.6); MCH 30.3 PG (29.0-34.0); MCHC 31.5 G/DL (30.0-36.0); MCV 96.2 FL (86-99); NRBC (%) 0.4 /100 WBC (0-0); PLATELET COUNT 196 K/uL (156-360); RBC DIS.WIDTH-CV 17.6 % (11.8-14.6); RBC DIS.WIDTH-SD 58.7 % (39-53); RED BLOOD COUNT 2.61 M/uL (4.00-5.50); WHITE BLOOD COUNT 8.1 K/uL (4.1-10.2)
[2018-02-14 15:52] LABS: INTER. NORMALIZED RATIO 1.3
[2018-02-14 15:54] LABS: PTT 26.2 SEC (25-37)
[2018-02-15] VITALS: BP 131/75
[2018-02-15 06:00] LABS: BASOPHIL (%) 0.8 % (0-1); BASOPHIL COUNT 0.1 K/uL (0-0.1); EOSINOPHIL (%) 3.6 % (0-5); EOSINOPHIL COUNT 0.3 K/uL (0-0.3); HEMATOCRIT 24.9 % (38.0-50.0); HEMOGLOBIN 7.9 G/DL (12.5-16.6); LYMPHOCYTE (%) 19.2 % (15-42); LYMPHOCYTE COUNT 1.4 K/uL (1.0-2.8); MCH 30.3 PG (29.0-34.0); MCHC 31.7 G/DL (30.0-36.0); MCV 95.4 FL (86-99); MONOCYTE (%) 7.4 % (3-12); MONOCYTE COUNT 0.5 K/uL (0-0.8); NEUTROPHIL COUNT 4.6 K/uL (1.8-6.4); PLATELET COUNT 197 K/uL (156-360); RBC DIS.WIDTH-CV 17.4 % (11.8-14.6); RED BLOOD COUNT 2.61 M/uL (4.00-5.50); WHITE BLOOD COUNT 7.2 K/uL (4.1-10.2)
[2018-02-15 06:25] LABS: ALBUMIN 2.2 G/DL (3.2-4.8); CHLORIDE 103 MEQ/L (99-109); CREATININE 6.3 MG/DL (0.6-1.3); GFR ESTIMATE (CALCULATED) 9 mL/min/ (58.99-99999); PHOSPHORUS 2.8 mg/dL (2.5-4.9); POTASSIUM 3.8 MEQ/L (3.7-5.4); SODIUM 140 MEQ/L (136-147); UREA NITROGEN (BUN) 29 mg/dL (9-23)
[2018-02-15 06:30] LABS: GLUCOSE 86 mg/dL (70-99)
[2018-02-15 11:52] VITALS: BP 116/52
[2018-02-15 15:48] VITALS: BP 98/68
[2018-02-15 19:56] VITALS: BP 114/63
[2018-02-16 00:07] VITALS: BP 121/74
[2018-02-16 03:52] VITALS: BP 124/75
[2018-02-16 07:32] VITALS: BP 110/74
[2018-02-16 11:59] VITALS: BP 126/74
[2018-02-16] MEDS ORDERED: NIFEREX-150,FE150 MG PO (17:38)
[2018-02-16] MEDS ORDERED: METRONIDAZOLE500 MG PO (17:38)
[2018-02-16] MEDS ORDERED: SALINE FLUSH 5 M5 ML IV (17:40)
[2018-02-16] MEDS ORDERED: PROTONIX40 MG PO (17:41)
== END 2018-02-16 19:15 | DRG 393 ==
LOC: 4EAST 07:20 → ENRESERV 07:21 → 4EAST 09:03 → ENRESERV 02-14 14:32 → 2EASTP 02-14 16:37
PROVIDERS: Family Medicine Sports Medicine; Internal Medicine; Internal Medicine Gastroenterology; Internal Medicine Nephrology; Specialist
PROC: 0DJD8ZZ Inspection of Lower Intestinal Tract, Via Natural or Artificial Opening Endoscopic (ICD-10-PCS; principal; 2018-02-08)
PROC: 0DB68ZX Excision of Stomach, Via Natural or Artificial Opening Endoscopic, Diagnostic (ICD-10-PCS; 2018-02-08)
PROC: 5A1D70Z Performance of Urinary Filtration, Intermittent, Less than 6 Hours Per Day (ICD-10-PCS; 2018-02-08)
PROC: 30233N1 Transfusion of Nonautologous Red Blood Cells into Peripheral Vein, Percutaneous Approach (ICD-10-PCS; 2018-02-10)
DX: K94.01 Colostomy hemorrhage (principal); D62 Acute posthemorrhagic anemia; K63.3 Ulcer of intestine; K29.70 Gastritis, unspecified, without bleeding; K29.80 Duodenitis without bleeding; K63.5 Polyp of colon; K26.9 Duodenal ulcer, unspecified as acute or chronic, without hemorrhage or perforation; K52.9 Noninfective gastroenteritis and colitis, unspecified; I12.0 Hypertensive chronic kidney disease with stage 5 chronic kidney disease or end stage renal disease; E11.22 Type 2 diabetes mellitus with diabetic chronic kidney disease; N18.6 End stage renal disease; Z99.2 Dependence on renal dialysis; Z93.1 Gastrostomy status; R26.9 Unspecified abnormalities of gait and mobility; N25.81 Secondary hyperparathyroidism of renal origin; I48.0 Paroxysmal atrial fibrillation; I95.9 Hypotension, unspecified; E66.01 Morbid (severe) obesity due to excess calories; Z68.42 Body mass index [BMI] 45.0-49.9, adult; G89.18 Other acute postprocedural pain; E89.3 Postprocedural hypopituitarism; D63.8 Anemia in other chronic diseases classified elsewhere; G47.33 Obstructive sleep apnea (adult) (pediatric); G89.29 Other chronic pain; M54.9 Dorsalgia, unspecified; M19.90 Unspecified osteoarthritis, unspecified site; I25.10 Atherosclerotic heart disease of native coronary artery without angina pectoris; K21.9 Gastro-esophageal reflux disease without esophagitis; E03.9 Hypothyroidism, unspecified; E78.5 Hyperlipidemia, unspecified; M10.9 Gout, unspecified; J45.909 Unspecified asthma, uncomplicated; Z85.46 Personal history of malignant neoplasm of prostate
CPT/HCPCS: 78278; 80053; 80069; 82948; 84443; 85014; 85018; 85025; 85025 91; 85027; 85610; 85730; 86706; 86850; 86900; 86901; 86920; 87070; 87075; 87205; 87340; 87641; 88305; 88342 TC; 94799; 97530 GO; 97530 GP; A9512; A9560; C9113; J0881; J1644; J1756; J1815; J2543; J7050; P9016